=== PATIENT | male | born 1945 | race Caucasian/White ===

== ENCOUNTER → 2021-12-10 10:14 | Outpatient (BNVA) | payer OTHER, MEDICARE, SELFPAY | PROVIDERS: PCP Pediatrics; Visit Provider Anesthesiology | DX: M54.2 Cervicalgia (principal); M48.061 Spinal stenosis, lumbar region without neurogenic claudication | CPT/HCPCS: 99202 ==

== ENCOUNTER 2023-07-01 14:36 | Outpatient (AMB) | payer OTHER, SELFPAY ==
--- NOTE | 2023-07-01 15:33 | HO.SPINEOV ---
Intake Intake Visit Reasons: 2 weeks Intake Note: Ms. Hirsch is here for f/u. Bulk Station Operator Required: No Allergies tizanidine [From Zanaflex] Adverse Reaction (Verified 12/10/21 11:00) Hallucinations Assessment & Plan Assessment & Plan (1) Lumbar stenosis without neurogenic claudication: Comment: Currently lumbar stenosis was not discussed. We have to address her acute pain problem. After that I will see her in this office in 8 weeks. Code(s): M48.061 - Spinal stenosis, lumbar region without neurogenic claudication (2) Cervicalgia: Code(s): M54.2 - Cervicalgia Plan Dear colleague, On 07/01/2023, I saw Mei Hirsch. She status post C6 corpectomy for cervical myelopathy and L4-5 lumbar fusion. She comes in discussing residual symptoms. 1st she developed severe itching in her neck 1 year postoperatively. She visited Dr. Melendez application systems administrator, who in the and prescribed gabapentin. Patient states that the itching has resolved. Other complaints are intermittent neck pain, mild tingling in the bilateral arms, mild balance problems and back pain with standing or walking. Neurological exam is benign and shows no pathological reflexes coffee active sensory deficits or weakness. I reviewed the patient's MRI of the cervical spine in detail and told patient that she had significant spinal cord compression with myelomalacia preoperatively and that in the described residual symptoms seem appropriate. As far as the back concerns, I told her that back pain with standing and walking, which is a form of spinal stenosis, response badly to surgery. I advised her to return to my office if progression of any symptoms occur. In particular, in the cervical symptoms would need further workup if progression occurs. I spent 30 minutes in this consult for preparation, review of imaging and discussing symptomatology. Thank you for letting me take care of this patient. Do not hesitate to call call me with any questions or concerns. Pranav Washington MD, PhD Spine Fellowship Trained Neurosurgeon Director, [facility] Coding Level of Care Code Est Pt Level 4 (05815) Diagnoses Lumbar stenosis without neurogenic claudication M48.061 Cervicalgia M54.2
== END 2023-07-01 15:55 | disposition home or self-care (01) ==
PROVIDERS: PCP Pediatrics; Referring Provider Internal Medicine; Visit Provider Neurological Surgery
DX: M48.061 Spinal stenosis, lumbar region without neurogenic claudication (principal); M54.2 Cervicalgia
CPT/HCPCS: 99214

== ENCOUNTER → 2023-07-01 14:36 | Outpatient (BNVA) | payer OTHER, SELFPAY | PROVIDERS: PCP Pediatrics; Referring Provider Internal Medicine; Visit Provider Neurological Surgery | DX: M48.061 Spinal stenosis, lumbar region without neurogenic claudication (principal); M54.2 Cervicalgia | CPT/HCPCS: 99212 ==

== ENCOUNTER 2024-06-30 14:51 | Outpatient (AMB) | payer OTHER, SELFPAY ==
--- NOTE | 2024-06-30 14:54 | HO.SPINEOV ---
Intake Visit Reasons: lower back pain/difficulty sitting Intake Note: Ms. Hirsch is here today c/o low back pain and having difficult with walking. Recreational Therapist Required: No Allergies tizanidine [From Zanaflex] Adverse Reaction (Verified 12/10/21 11:00) Hallucinations Assessment & Plan Assessment & Plan (1) Lumbar stenosis without neurogenic claudication: Comment: Currently lumbar stenosis was not discussed. We have to address her acute pain problem. After that I will see her in this office in 8 weeks. Code(s): M48.061 - Spinal stenosis, lumbar region without neurogenic claudication Category: Medical Plan Dear colleague, on 06/30/2024 I saw for return visit Mei Hirsch for ongoing back pain. She complains of severe back pain, predominantly with walking and standing. 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 The pain radiates down her posterior thighs but does not go below the knees. Prolonged sitting eventually also gives her the same type of back pain. On exam, there is no pain with hip rotation. Straight leg raise is negative. No motor or sensory deficits. In summary, the patient is suffering from back pain without neurogenic claudication most likely caused by lumbar spinal stenosis. I will order a new MRI of the lumbar spine. I will also obtain a set of x-rays during the next visit. I spent 30 minutes in his consult to discuss the symptomatology and plan. Pranav Washington MD, PhD Spine Fellowship Trained Neurosurgeon Director, [facility] Orders: Orders MR lumbar spine wo con Today M48.061 - Spinal stenosis, lumbar region without neurogenic claudication Coding Level of Care Code Est Pt Level 4 (71355) Diagnoses Lumbar stenosis without neurogenic claudication M48.061
== END 2024-06-30 15:33 | disposition home or self-care (01) ==
PROVIDERS: PCP Internal Medicine; Visit Provider Neurological Surgery
DX: M48.061 Spinal stenosis, lumbar region without neurogenic claudication (principal)
CPT/HCPCS: 99214

== ENCOUNTER → 2024-06-30 14:51 | Outpatient (BNVA) | payer OTHER, SELFPAY | PROVIDERS: PCP Internal Medicine; Visit Provider Neurological Surgery | DX: M48.061 Spinal stenosis, lumbar region without neurogenic claudication (principal) | CPT/HCPCS: 99212 ==

== ENCOUNTER → 2024-08-01 09:38 | Outpatient (BNV) | payer OTHER, SELFPAY | PROVIDERS: PCP Internal Medicine; Visit Provider Radiology Diagnostic Radiology | DX: M54.50 Low back pain, unspecified (principal) | CPT/HCPCS: 72148 ==

== ENCOUNTER 2024-08-01 09:55 | Outpatient (REF) | payer OTHER, SELFPAY ==
--- NOTE | ~2024-08-01 | MR_ITS ---
EXAMINATION: MR LUMBAR SPINE WITHOUT CONTRAST CLINICAL INFORMATION: Low back pain. Status post surgery. Weakness and numbness both lower extremities. COMPARISON: None available. TECHNIQUE: MRI of the lumbar spine was obtained using routine sequences without contrast. FINDINGS: Last rib-bearing vertebra labeled T12. Paramagnetic field distortion secondary to metallic hardware posterior fusion L4-5 and intervertebral disc spacer at L4-5. L2 level marginal osteophyte formation and disc desiccation. No bone marrow STIR signal abnormality. Grade 1 retrolisthesis, L3-4. Grade 1 anterolisthesis L4-5. Conus medullaris ends at intervertebral disc T12-L1 with normal signal. T12-L1: No compression upon neural elements. L1-2: Broad-based disc bulging. Facet joint hypertrophy as well as ligamentum flavum. No compression upon neural elements. L2-3: Broad-based disc bulging. Facet joint and ligamentum flavum hypertrophy resulting in decreased AP diameter of the thecal sac encroaching the neural elements. Bilateral neuroforamina narrowing. L3-4: Grade 1 retrolisthesis. Broad-based disc bulging. Facet joint and ligamentum flavum hypertrophy. CSF effacement of the thecal sac and central spinal canal stenosis. Bilateral neuroforamina stenosis encroaching the exiting nerve root. L4-5: Post surgical changes. L5-S1: Broad-based disc bulging. Facet joint hypertrophy. No central spinal canal stenosis. No neuroforamina stenosis. No prevertebral compartment hematoma, mass or fluid collection. Soft tissue fullness, left adrenal gland. MR/MR lumbar spine wo con IMPRESSION: Multilevel spondylosis resulting in central spinal canal stenosis compressing the neural elements of the thecal sac at L3-4 likely encroaching the exiting nerve roots. Central spinal canal narrowing at L2-3 on a multifactorial basis. Probable left adrenal hyperplasia. Electronically signed by: Axel Landry MD 08/31/2024 01:03 PM EDT
== END 2024-08-01 09:56 | disposition home or self-care (01) ==
LOC: HO.MRI 09:55
PROVIDERS: PCP Internal Medicine; Visit Provider Neurological Surgery
DX: M48.061 Spinal stenosis, lumbar region without neurogenic claudication (principal)
CPT/HCPCS: 72148

== ENCOUNTER 2024-09-08 13:10 | Outpatient (AMB) | payer OTHER, SELFPAY ==
--- NOTE | 2024-09-08 13:16 | HO.SPINEOV ---
Intake Visit Reasons: MRI f/u Intake Note: Ms. Hirsch is here today to F/u on the results to her MRI. Tableau Developer Required: No Allergies tizanidine [From Zanaflex] Adverse Reaction (Verified 09/08/24 13:17) Hallucinations Assessment & Plan Assessment & Plan (1) Lumbar stenosis without neurogenic claudication: Comment: Currently lumbar stenosis was not discussed. We have to address her acute pain problem. After that I will see her in this office in 8 weeks. Code(s): M48.061 - Spinal stenosis, lumbar region without neurogenic claudication Category: Medical Plan Dear colleague, On 09/08/2024, I saw for follow-up Mei Hirsch to discuss the MRI results of her lumbar spine. As you know, she suffering from back pain predominantly with walking and standing and sometimes she has a mild discomfort in her right leg. Standing in the kitchen is a problem and she has to sit down. She uses Tylenol or ibuprofen to control the symptoms. I reviewed the MRI in detail with the patient in his shows adjacent severe central spinal stenosis above the previous L4-5 fusion. The patient states that she currently can manage her symptoms but she will return if the neurogenic symptoms are increasing. At that point, we will have to address the L3-4 level with a fusion. I spent 15 minutes in his consult discussing the MRI results. Pranav Washington MD, PhD Spine Fellowship Trained Neurosurgeon Director, [facility] Coding Level of Care Code Est Pt Level 2 (81728) Diagnoses Lumbar stenosis without neurogenic claudication M48.061
== END 2024-09-08 13:31 | disposition home or self-care (01) ==
LOC: HO.HNS 13:11
PROVIDERS: PCP Internal Medicine; Visit Provider Neurological Surgery
DX: M48.061 Spinal stenosis, lumbar region without neurogenic claudication (principal)
CPT/HCPCS: 99212

== ENCOUNTER → 2024-09-08 13:10 | Outpatient (BNVA) | payer OTHER, SELFPAY | PROVIDERS: PCP Internal Medicine; Visit Provider Neurological Surgery | DX: M48.061 Spinal stenosis, lumbar region without neurogenic claudication (principal) | CPT/HCPCS: 99212 ==

== ENCOUNTER 2025-04-25 10:34 | Outpatient (AMB) | payer OTHER, SELFPAY ==
--- NOTE | 2025-04-25 10:56 | HO.SPINEOV ---
Intake Visit Reasons: LBP Intake Note: Ms. Hirsch is here today c/o low back pain. Veterinary Technician Required: No Allergies tizanidine (From Zanaflex) Adverse Reaction (Verified 09/08/24 13:17) Hallucinations Assessment & Plan Assessment & Plan (1) Spinal stenosis, lumbar: Code(s): M48.061 - Spinal stenosis, lumbar region without neurogenic claudication Category: Medical Plan HPI: Mei comes in today for subsequent follow-up after previously being evaluated in clinic by Dr. Washington. She has a pertinent past medical history of an L4-[address] Washington a few years ago. She called to make an appointment for follow up today because she feels that her neurogenic claudication symptoms are worsening. She has worsening pain with standing for prolonged periods of time, and is only able to mitigate her pain by taking Alleve and using Salonpas patches. She has become much less active and feels her quality of life is declining. I reviewed Dr. Washington previous recommendation of L3-4 lumbar fusion. Specifically we reviewed the OLIF procedure in depth. I answered all questions she had related to the procedure. She wishes to proceed with oblique lumbar interbody fusion L3-4. Medications: The patient reports that her current medications are as follows; amlodipine, metoprolol, Lipitor, unspecified eye drops for macular degeneration, calcium supplements, vitamin-D. Imaging: MRI of the lumbar spine completed here at [facility] shows severe central canal and bilateral foraminal stenosis at L4-5, above her L4-5 fusion segment. Plan: After discussing L3-4 OLIF at great length the patient asked several questions all of which were answered to the best of my ability. She would like to proceed with surgery. I will review her images [address] Washington to ensure that he L3-4 OLIF is the procedure of choice for her fusion. The patient was given risk and benefits of lumbar spine fusion surgery including but not limited to infection, hematoma, nerve injury, durotomy, weakness, bowel/bladder injury, persistent pain, pseudoarthrosis. We also discussed the option to continue with conservative treatment and patient wishes to proceed with surgery. They are aware they should stop NSAIDs 7 days prior to surgery. All questions were answered to the best of our ability. If there is anything about this patients medical history that we have overlooked or concerns you have about us proceeding with surgery we would appreciate any input you can offer Chinedu Washington MD,PhD [facility] Coding Level of Care Code Est Pt Level 3 (56721) Diagnoses Spinal stenosis, lumbar M48.061
--- OUTSIDE RECORDS SUMMARY | 2025-04-25 11:50 | XMS_ITS | Encounter Summary ---
Author Organization [facility] Address [address] [place] [address] Care Team Providers Care Matrix Drier Tender Name Role Phone Mer Chandler MD Primary Care Provider [phone] Reason for Referral * Consultation (Routine) - Pending Review Specialty Diagnoses / Procedures Referred By Patricia jones Referred To Contact Neurosurgery Diagnoses Low back pain, unspecified Mer Chandler MD [address] [place] [address] Phone: tel: fax: Chinedu Oliveira PA [address] [place] [address] Phone: tel: fax: Referral ID Status Reason Start Date Expiration Date Visits Requested Visits Authorized [id number] Pending Review Specialty Services Required 04/20/2025 04/20/2026 1 1 Encounter Details Date Type Department Care Team (Late st Contact Info) Description 04/20/2025 Telephone Adult Medicine [address] [phone] Mer Chandler MD [address] [place] [id number] Social History Tobacco Use Types Packs/Day Years Used Date Smoking Tobacco: Never Smokeless Tobacco: Never Alcohol Use Standard Drinks/Week Comments No 0 (1 standard drink = 0.6 oz pur e alcohol) Housing Instability Answer Date Recorde d Are you worried that in the next 2 months you may not have stable housing? No 12/06/2024 Food Access & Nutrition Answer Date Rec orded Do you have access to a vari ety of food including fruits and vegetables? Yes 12/06/2024 Access to Healthcare Answer Date Record ed Within the last 3 months, ho w many times did you visit the emergency department for your medical care? 0 12/06/2024 Health Literacy Answer Date Recorded How often do you need to hav e someone help you when you read instructions, pamphlets, or other written material from your doctor or pharmacy? Never 12/06/2024 Caregiver: How often do you need to have someone help you when you read instructions, pamphlets, or other written material from your doctor or pharmacy? Not on file 12/06/2024 Financial Risk Answer Date Recorded How hard is it for you to pa y for the very basics like food, housing, medical care, and air conditioning / heating? Not very hard 12/06/2024 Transportation Answer Date Recorded Has the lack of transportati on kept you from meetings, work, or from getting things needed for daily living? No Has the lack of transportati on kept you from medical appointments or from getting medications? No 12/06/2024 Social Isolation Answer Date Recorded How often do you feel lonely or isolated from th ose around you? Never 12/06/2024 Food Risk Answer Date Recorded Within the past 12 months we worried whether our food would run out before we got money to buy more. Never true 12/06/2024 Within the past 12 months th e food we bought just didn't last and we didn't have money to get more. Never true 12/06/2024 Dependent Care Answer Date Recorded Do you need help finding or paying for care for your loved ones. For example, children's ministries director or elderly care for an older adult? Patient declined 12/06/2024 Education Answer Date Recorded Do you think completing more education or training, like finishing a GED, going to college, or learning a trade, would be helpful for you? No 12/06/2024 Employment and Income Answer Date Recor ded During the last four weeks, have you been actively looking for work? Patient declined 12/06/2024 Living Situation Answer Date Recorded What is your living situation? 0 12/06/2024 Comments No Sex and Gender Information Value Date Recorded Sex Assigned at Female 11/02/2024 10:53 AM EST Legal Sex Female 7:31 PM EST Gender Identity Female 11/02/2024 10:53 AM EST Sexual Orientation Not on file documented as of this encounter Progress Notes * Taryn Sr - 04/20/2025 1:55 PM EDT What insurance does the patient have today? [facility]or: [email or web address]/@[email or web address]@ Referrals cannot be processed if the insurance is not accurate. If the insurance listed above is NO BILLING INFORMATION FOUND FOR THIS ENCOUNTER then the patients correct insurance must be obtainedand registered in [facility] or their referral can not be processed. Name of person calling to request this referral? Rep schmitz Referred To Provider (Include first and last name): CHINEDU OLIVEIRA NPI (if known): [id number] Order/Specialty requested neurosurgery Chief Complaint (Note: This is not a body part or a procedure): m54.50 Has the patient seen provider for this problem/Dx before? yes Referred To Provider Address: [address] [place] [address] Referred To Provider Referred To Provider Does patient have an appointment scheduled?: yes If yes, what is the date of the appointment?: 04/25/2025 Is this a retro request? no Number of visits requested: 6 documented in this encounter Plan of Treatment Upcoming Encounters Date Type Department Care Team (Late st Contact Info) Description 05/24/2025 8:30 AM EDT Office Visit Adult Medicine [place] - [address] [phone] Mer Chandler MD [address] [place] [address] 06/27/2025 9:00 AM EDT Office Visit Obstetrics and Gynecology - [place] [address] [place] [phone] Judy Lara CNM [address] [place] [address] Scheduled Referrals Name Type Priority Associated Diagnoses Order Schedule Ambulatory referral to Neurosurgery Outpatient Referral Routine Low back pain, unspecified 1 Occurrences starting 04/20/2025 until 04/20/2026 documented as of this encounter Visit Diagnoses Diagnosis Low back pain, unspecified- Primary documented in this encounter Additional Health Concerns Assessment Noted Time PHQ-9 Depression Total Score: 0 03/22/20 25 9:47 AM EDT documented as of this encounter Care Teams Matrix Drier Tender Relationship Specialty Start Date End Date Mer Chandler MD [address] [place] [phone] PCP - General Internal Medicine 06/10/22 documented as of this encounter
== END 2025-04-25 11:30 | disposition home or self-care (01) ==
LOC: HO.HNS 10:35
PROVIDERS: PCP Internal Medicine; Visit Provider Physician Assistant
DX: M48.061 Spinal stenosis, lumbar region without neurogenic claudication (principal)
CPT/HCPCS: 99213

== ENCOUNTER → 2025-04-25 10:34 | Outpatient (BNVA) | payer OTHER, SELFPAY | PROVIDERS: PCP Internal Medicine; Visit Provider Physician Assistant | DX: M48.061 Spinal stenosis, lumbar region without neurogenic claudication (principal) | CPT/HCPCS: 99212 ==

== ENCOUNTER → 2025-05-16 11:31 | Outpatient (BNV) | payer OTHER, SELFPAY | PROVIDERS: Admitting Provider Neurological Surgery; PCP Internal Medicine; Visit Provider Internal Medicine | DX: R94.31 Abnormal electrocardiogram [ECG] [EKG] (principal); Z01.810 Encounter for preprocedural cardiovascular examination | CPT/HCPCS: 93010 ==

== ENCOUNTER 2025-05-24 09:31 | Inpatient (IN) | payer OTHER, SELFPAY ==
--- NOTE | 2025-05-16 | ECG_ITS ---
Test Reason : PRE OP Blood Pressure : */* mmHG Vent. Rate : 61 BPM Atrial Rate : 61 BPM P-R Int : 206 ms QRS Dur : 96 ms QT Int : 408 ms P-R-T Axes : 28 22 26 degrees QTcB Int : 410 ms Normal sinus rhythm cannot exclude old Anterior infarct , age undetermined ; could be related to body habitus and lead placement Abnormal ECG No previous ECGs available Referred By: Jina Fisher Electronically Signed By: YOUNG REARDON
[2025-05-16 10:23] VITALS: BP 136/62; PULSE 68; RESP 20; O2SAT 98; BMI 24.4
[2025-05-16 11:58] LABS: Hematocrit 38.8 % (42.0-52.0); Hemoglobin 13.1 g/dl (14.0-18.0); Mean Corpuscular HGB Conc 33.8 g/dl (31.0-36.0); Mean Corpuscular Hemoglobin 30.4 pg (27.0-33.0); Mean Corpuscular Volume 90.0 fL (80.0-98.0); NRBC Abs Auto 0.000 X10*3/uL (0.0-0.012); NRBC Pct Auto 0.0 /100WBC (0.0-0.2); Platelet Count 297 X10*3/uL (160-400); Red Blood Count 4.31 X10*6/uL (4.60-5.80); White Blood Count 11.1 X10*3/uL (4.8-10.8)
[2025-05-16 12:33] LABS: Anion Gap 12 (12-20); Blood Urea Nitrogen 19 mg/dL (9-16); Calcium 9.7 mg/dL (8.4-10.2); Carbon Dioxide 28 mmol/L (22-29); Chloride 105 mmol/L (96-108); Creatinine Clr Calc Pharmacy 61.4; Estimated Glomerular Filt Rate > 60; Potassium 4.4 mmol/L (3.3-5.1); Sodium 141 mmol/L (135-145)
[2025-05-24] VITALS (11 sets, daily range): BP systolic 130–172; BP diastolic 49–72; PULSE 68–82; RESP 12–18; TEMP 36.1–36.6; O2SAT 92–100; BMI 24.3
--- NOTE | ~2025-05-24 | FL_ITS ---
EXAMINATION: FL GUIDANCE ONLY HISTORY: L3-4 OLIF COMPARISON: Correlation is made with an MRI of the lumbar spine dated 08/01/2024. TECHNIQUE: Fluoroscopy time: 59.8 seconds. Cumulative Dose: 29.892 mGy. DAP: 12.018 mGym2 Images: 3. FINDINGS: Fluoroscopic spot films of the lumbar spine demonstrate removal of pedicle screws at L4-5 and placement of pedicle screws, spinal stabilization rods, and an intervertebral spacer at L3-4. FL/FL guidance in OR IMPRESSION: Fluoroscopy during procedure. Please see procedure report for additional information. Electronically signed by: Hudson Calzada MD 05/24/2025 02:24 PM EDT
--- NOTE | 2025-05-24 07:00 | MHC.SHP ---
Pre-Procedural Eval Section A - 24 Hr Update-Section A only Date of Service: 05/24/25 Section B - Complete if H&P > 30 days Chief Complaint: Spinal stenosis, lumbar region without neurogenic Allergies: Allergies Allergy/AdvReac Type Severity Reaction Status Date / Time clonidine Allergy Hypotension Verified 05/18/25 09:52 lisinopril Allergy Cough Verified 05/18/25 09:51 losartan Allergy Nausea Verified 05/18/25 09:53 oxycodone Allergy Fainting Verified 05/13/25 07:25 tramadol Allergy Nausea and Verified 05/13/25 07:25 Vomiting tizanidine (From Zanaflex) AdvReac Hallucinati Verified 09/08/24 13:17 ons Review of Systems Sugical H&P ROS: Negative: Constitution, Cardiovascular, Respiratory, Neurological, Psychiatric, Hem-Onc, Allergic/Immunologic, Gastrointestinal, Genitourinary, Musculoskeletal, Integumentary, Endocrine and Eyes/Ears/Nose/Throat Exam Surgical H&P Exam: Not Evaluated: HEENT, Not Evaluated: Heart, Not Evaluated: Lungs, Not Evaluated: Extremities, Not Evaluated: Abdomen, Not Evaluated: Skin and Not Evaluated: Neurological Exam Comment: The patient is awake, alert, in no acute distress. Proposed surgical incision site is clean, dry, no signs of recent trauma. Plan Diagnosis/Plan: Unchanged I have reviewed the history and physical and performed a pertinent physical examination on my patient. No changes have occurred unless specified. Plan remains the same, L3-4 OLIF with possible conversion to TLIF and removal of instrumentation at L4-5 Time Spent With Patient Time: Total time managing care of this patient today __7_ minutes.
--- NOTE | 2025-05-24 09:38 | HO.ANESPROP2 ---
Documented by User: Jina Fisher NP 05/18/25 10:12 HPI - Anesthesia Eval Consult details Narrative: 80 yr old female for Oblique Lumbar Interbody Fusion (possible conversion to TLIF) and Removal of instrumentation @ L4-5. No recent illness. No chest pain or SOB; climbs stairs. Saw PCP 04/14/25 for HTN mgt, started on amlodipine 5 mg, continue metoprolol 75 mg. PMFSH Active Problems Active Problems: All Active Problems Spinal stenosis, lumbar (Acute) Lumbar stenosis without neurogenic claudication (Acute) Cervicalgia (Acute) Past Medical History Medical History (Updated 05/24/25 @ 09:03 by Khadijah Palencia RN) Bilateral cataracts Family hx total abdominal hysterectomy/bilateral salpingo-oophorectomy Hypercholesteremia History of Mohs micrographic surgery for skin cancer History of hormone replacement therapy Lumbar stenosis without neurogenic claudication Cervicalgia History of basal cell cancer DDD (degenerative disc disease), lumbar Vitamin D deficiency Essential hypertension, benign Functional capacity: independent ambulation Family History Family history of problems with anesthesia: No Surgical History Surgical History (Updated 05/16/25 @ 10:11 by Anushka Vargas RN) History of carpal tunnel surgery of right wrist History of Mohs surgery for squamous cell carcinoma in situ of skin H/O colonoscopy Hx of breast reduction, elective History of lumbar fusion Hx of rotator cuff surgery Hx of neck surgery Hx of hand surgery Hx of cholecystectomy History of Problems with Anesthesia: Yes (severe N/V in recovery, 2021 spine procedure.) Social History Social History Are you a primary skin care consultant to a significant other at home: No Do you presently have visiting nurse or other home services: No Patient Tobacco Use Status: Never used Tobacco Use of substances other than those prescribed or required for medical reasons: No Have you been hit, kicked, punched, or otherwise hurt by someone within the past year? If so, by whom?: No Are you DNR?: No Advance Directives: No Advance Directives Information Provided: No Advance Directives on File: No Poor oral hygiene: Yes Meds Allergies Allergy/AdvReac Type Severity Reaction Status Date / Time clonidine Allergy Hypotension Verified 05/18/25 09:52 lisinopril Allergy Cough Verified 05/18/25 09:51 losartan Allergy Nausea Verified 05/18/25 09:53 oxycodone Allergy Fainting Verified 05/13/25 07:25 tramadol Allergy Nausea and Verified 05/13/25 07:25 Vomiting tizanidine (From Zanaflex) AdvReac Hallucinati Verified 09/08/24 13:17 ons Home Medications ?Medication ?Instructions ?Recorded ?Confirmed ?Last Taken ?Type metoprolol succinate 50 mg 75 mg PO DAILY 12/10/21 05/16/25 05/24/25 History tablet,extended release 24 hr atorvastatin 10 mg tablet 10 mg PO BEDTIME 05/13/25 05/24/25 05/23/25 History calcium 500 mg (as 1 tab PO DAILY 05/13/25 05/13/25 05/23/25 History carbonate)-vitamin D3 10 mcg (400 unit) tablet gabapentin 100 mg capsule 200 mg PO BEDTIME 05/13/25 05/16/25 05/23/25 History pantoprazole 40 mg tablet,delayed 40 mg PO DAILY 05/13/25 05/16/25 05/24/25 History release amlodipine 5 mg tablet 5 mg PO DAILY 05/16/25 05/16/25 05/24/25 History cholecalciferol (vitamin D3) 25 25 mcg PO DAILY 05/16/25 05/16/25 05/23/25 History mcg (1,000 unit) capsule (Vitamin D3) ibuprofen 200 mg tablet 400 mg PO Q6H PRN Pain 05/16/25 05/16/25 05/16/25 History naproxen sodium 220 mg capsule 220 mg PO BID PRN Pain 05/16/25 05/16/25 05/16/25 History (Aleve) vit C 250 mg-vit E 90 mg-zinc 40 1 tab PO BID 05/24/25 05/24/25 05/23/25 History mg-copper 1 [id number] capsule (PreserVision AREDS-2) Exam Height,Weight and Vital Signs: Height 5 ft 4 in Weight 64.41 kg Last Vital Signs Pulse 68 05/16/25 10:23 Resp 20 05/16/25 10:23 BP 136/62 05/16/25 10:23 Pulse Ox 98 05/16/25 10:23 O2 Del Method Room Air 05/16/25 10:23 Narrative Narrative: EKG 05/2025 Vent. Rate : 61 BPM Atrial Rate : 61 BPM P-R Int : 206 ms QRS Dur : 96 ms QT Int : 408 ms P-R-T Axes : 28 22 26 degrees QTcB Int : 410 ms Normal sinus rhythm cannot exclude old Anterior infarct, age undetermined; could be related to body habitus and lead placement *EKG from 02/2022 with similar findings, possible anterospetal infarct Airway Mallampati Class: II (small mouth opening) TM Dist: >3cm Neck ROM: Full Loose/Missing/Broken Teeth: No (crowns on 8&9) Heart: RRR Lungs: clear to auscultation b/l Assessment and Plan Final Anesthetic Review Family History of Problems with Anesthesia: No History of Problems with Anesthesia: Yes (severe N/V in recovery, 2021 spine procedure.) Documented by User: Winnie Do NP 05/17/25 14:18 [facility] Past Medical History Medical History (Updated 05/24/25 @ 09:03 by Khadijah Palencia RN) Bilateral cataracts Family hx total abdominal hysterectomy/bilateral salpingo-oophorectomy Hypercholesteremia History of Mohs micrographic surgery for skin cancer History of hormone replacement therapy Lumbar stenosis without neurogenic claudication Cervicalgia History of basal cell cancer DDD (degenerative disc disease), lumbar Vitamin D deficiency Essential hypertension, benign Surgical History Surgical History (Updated 05/16/25 @ 10:11 by Anushka Vargas RN) History of carpal tunnel surgery of right wrist History of Mohs surgery for squamous cell carcinoma in situ of skin H/O colonoscopy Hx of breast reduction, elective History of lumbar fusion Hx of rotator cuff surgery Hx of neck surgery Hx of hand surgery Hx of cholecystectomy Social History Social History Are you a primary skin care consultant to a significant other at home: No Do you presently have visiting nurse or other home services: No Patient Tobacco Use Status: Never used Tobacco Use of substances other than those prescribed or required for medical reasons: No Have you been hit, kicked, punched, or otherwise hurt by someone within the past year? If so, by whom?: No Are you DNR?: No Advance Directives: No Advance Directives Information Provided: No Advance Directives on File: No Poor oral hygiene: Yes Meds Allergies Allergy/AdvReac Type Severity Reaction Status Date / Time clonidine Allergy Hypotension Verified 05/18/25 09:52 lisinopril Allergy Cough Verified 05/18/25 09:51 losartan Allergy Nausea Verified 05/18/25 09:53 oxycodone Allergy Fainting Verified 05/13/25 07:25 tramadol Allergy Nausea and Verified 05/13/25 07:25 Vomiting tizanidine (From Zanaflex) AdvReac Hallucinati Verified 09/08/24 13:17 ons Home Medications ?Medication ?Instructions ?Recorded ?Confirmed ?Last Taken ?Type metoprolol succinate 50 mg 75 mg PO DAILY 12/10/21 05/16/25 05/24/25 History tablet,extended release 24 hr atorvastatin 10 mg tablet 10 mg PO BEDTIME 05/13/25 05/24/25 05/23/25 History calcium 500 mg (as 1 tab PO DAILY 05/13/25 05/13/25 05/23/25 History carbonate)-vitamin D3 10 mcg (400 unit) tablet gabapentin 100 mg capsule 200 mg PO BEDTIME 05/13/25 05/16/25 05/23/25 History pantoprazole 40 mg tablet,delayed 40 mg PO DAILY 05/13/25 05/16/25 05/24/25 History release amlodipine 5 mg tablet 5 mg PO DAILY 05/16/25 05/16/25 05/24/25 History cholecalciferol (vitamin D3) 25 25 mcg PO DAILY 05/16/25 05/16/25 05/23/25 History mcg (1,000 unit) capsule (Vitamin D3) ibuprofen 200 mg tablet 400 mg PO Q6H PRN Pain 05/16/25 05/16/25 05/16/25 History naproxen sodium 220 mg capsule 220 mg PO BID PRN Pain 05/16/25 05/16/25 05/16/25 History (Aleve) vit C 250 mg-vit E 90 mg-zinc 40 1 tab PO BID 05/24/25 05/24/25 05/23/25 History mg-copper 1 [id number] capsule (PreserVision AREDS-2) Exam Pertinent Lab Results Pertinent Lab Results: Lab Results 05/16/25 05/16/25 Range/Units 11:13 11:25 WBC 11.1 H (4.8-10.8) X10*3/uL RBC 4.31 L (4.60-5.80) X10*6/uL Hgb 13.1 L (14.0-18.0) g/dl Hct 38.8 L (42.0-52.0) % MCV 90.0 (80.0-98.0) fL MCH 30.4 (27.0-33.0) pg MCHC 33.8 (31.0-36.0) g/dl RDW 13.9 (11.0-16.0) % Plt Count 297 (160-400) X10*3/uL MPV 9.8 (9.4-12.4) fL Absolute Nucleated RBC 0.000 (0.0-0.012) X10*3/uL Nucleated RBC % (auto) 0.0 (0.0-0.2) /100WBC Sodium 141 (135-145) mmol/L Potassium 4.4 (3.3-5.1) mmol/L Chloride 105 (96-108) mmol/L Carbon Dioxide 28 (22-29) mmol/L Anion Gap 12 (12-20) BUN 19 H (9-16) mg/dL Creatinine 0.83 (0.5-1.4) mg/dL Estim Creat Clear Calc 61.4 Estimated GFR > 60 Random Glucose 85 (60-115) mg/dL Calcium 9.7 (8.4-10.2) mg/dL Blood Type O Positive Antibody Screen NEGATIVE Narrative Narrative: EKG 05/2025 Vent. Rate : 61 BPM Atrial Rate : 61 BPM P-R Int : 206 ms QRS Dur : 96 ms QT Int : 408 ms P-R-T Axes : 28 22 26 degrees QTcB Int : 410 ms Normal sinus rhythm cannot exclude old Anterior infarct , age undetermined ; could be related to body habitus and lead placement Abnormal ECG No previous ECGs available Documented by User: Anna Mendes, DO 05/24/25 09:42 [facility] Past Medical History Medical History (Updated 05/24/25 @ 09:03 by Khadijah Palencia RN) Bilateral cataracts Family hx total abdominal hysterectomy/bilateral salpingo-oophorectomy Hypercholesteremia History of Mohs micrographic surgery for skin cancer History of hormone replacement therapy Lumbar stenosis without neurogenic claudication Cervicalgia History of basal cell cancer DDD (degenerative disc disease), lumbar Vitamin D deficiency Essential hypertension, benign Family History Family history of problems with anesthesia: No Surgical History Surgical History (Updated 05/16/25 @ 10:11 by Anushka Vargas RN) History of carpal tunnel surgery of right wrist History of Mohs surgery for squamous cell carcinoma in situ of skin H/O colonoscopy Hx of breast reduction, elective History of lumbar fusion Hx of rotator cuff surgery Hx of neck surgery Hx of hand surgery Hx of cholecystectomy History of Problems with Anesthesia: Yes (PONV) Social History Social History Are you a primary skin care consultant to a significant other at home: No Do you presently have visiting nurse or other home services: No Patient Tobacco Use Status: Never used Tobacco Use of substances other than those prescribed or required for medical reasons: No Have you been hit, kicked, punched, or otherwise hurt by someone within the past year? If so, by whom?: No Are you DNR?: No Advance Directives: No Advance Directives Information Provided: No Advance Directives on File: No Poor oral hygiene: Yes Meds Allergies Allergy/AdvReac Type Severity Reaction Status Date / Time clonidine Allergy Hypotension Verified 05/18/25 09:52 lisinopril Allergy Cough Verified 05/18/25 09:51 losartan Allergy Nausea Verified 05/18/25 09:53 oxycodone Allergy Fainting Verified 05/13/25 07:25 tramadol Allergy Nausea and Verified 05/13/25 07:25 Vomiting tizanidine (From Zanaflex) AdvReac Hallucinati Verified 09/08/24 13:17 ons Home Medications ?Medication ?Instructions ?Recorded ?Confirmed ?Last Taken ?Type metoprolol succinate 50 mg 75 mg PO DAILY 12/10/21 05/16/25 05/24/25 History tablet,extended release 24 hr atorvastatin 10 mg tablet 10 mg PO BEDTIME 05/13/25 05/24/25 05/23/25 History calcium 500 mg (as 1 tab PO DAILY 05/13/25 05/13/25 05/23/25 History carbonate)-vitamin D3 10 mcg (400 unit) tablet gabapentin 100 mg capsule 200 mg PO BEDTIME 05/13/25 05/16/25 05/23/25 History pantoprazole 40 mg tablet,delayed 40 mg PO DAILY 05/13/25 05/16/25 05/24/25 History release amlodipine 5 mg tablet 5 mg PO DAILY 05/16/25 05/16/25 05/24/25 History cholecalciferol (vitamin D3) 25 25 mcg PO DAILY 05/16/25 05/16/25 05/23/25 History mcg (1,000 unit) capsule (Vitamin D3) ibuprofen 200 mg tablet 400 mg PO Q6H PRN Pain 05/16/25 05/16/25 05/16/25 History naproxen sodium 220 mg capsule 220 mg PO BID PRN Pain 05/16/25 05/16/25 05/16/25 History (Aleve) vit C 250 mg-vit E 90 mg-zinc 40 1 tab PO BID 05/24/25 05/24/25 05/23/25 History mg-copper 1 [id number] capsule (PreserVision AREDS-2) Exam Exam Date and Time: 05/24/25 0940 Airway Mallampati Class: II (small mouth opening) TM Dist: >3cm Neck ROM: Full (hx of cervical fusion) Loose/Missing/Broken Teeth: No (patient denies any loose or broken teeth) Heart: S1S2 Lungs: CTAB Assessment and Plan Assessment Anesthesia Assessment: Anesthesia Plan Discussed and Chart Reviewed Final Anesthetic Review Family History of Problems with Anesthesia: No History of Problems with Anesthesia: Yes (PONV) NPO: Yes ASA Class: II Final Preanesthetic Review: No Changes in Pt Med Stat, Meds/Allgs Chart Reviewed, Consent Obtained/Reviewed and Anes Risks/Benef Reviewed Patient Risk: Low Procedure Risk: Intermediate Anesthetic Plan Anesthetic Plan: GA and Agree w/ Assess. and Plan Disposition: Standard PACU
[2025-05-24] MEDS: Lactated Ringers 1,000 ML 100 ML IVCONT (09:42)
--- OUTSIDE RECORDS SUMMARY | 2025-05-24 10:12 | XMS_ITS | Clinical Summary ---
Author Organization [facility] [address] [place] [address] Address [address] [place] [address] Phone Care Team Providers Care Firmware Test Engineer Name Role Phone Mer Chandler MD Primary Care Provider [phone] Allergies Active Allergy Reactions Criticality Noted Date Comments Clonidine 04/14/2025 Bp dropped very low Lisinopril Cough 03/08/2025 Losartan Nausea Only 04/14/2025 Feeling unwell Oxycodone Other 03/29/2022 syncope Tizanidine Other 09/19/2020 hallucinations Tramadol Nausea And Vomiting 04/30/2023 Medications calcium carbonate/vitam in D3 (CALCIUM 500 + D ORAL) Take 1 capsule by mouth 1 (one) time each day. Active gabapentin (NEURONTIN) 100 mg capsule Take 1 capsule (100 mg total) by mouth 1 (one) time each day in the morning. and 2 tablets PM Active vit A/vit C/vit E/zinc/copper (PRESERVISION AREDS ORAL) Take by mouth. Active pantoprazole (PROTONIX) 40 mg EC tablet TAKE 1 TABLET BY MOUTH DAILY 90 tablet 1 5 Active metoprolol succinate (TOPROL-XL) 50 mg 24 hr tablet Take 1.5 tablets (75 mg total) by mouth 1 (one) time each day. 135 tablet 1 5 Active cloNIDine (CATAPRES) 0.2 mg tablet Take 1 tablet (0.2 mg total) by mouth 2 (two) times a day. 60 each 1 5 02/29/20 26 Active fezolinetant 45 mg tabletIndicatio ns:Vasomotor symptoms due to menopause Take 1 tablet by mouth 1 (one) time each day. 90 tablet 1 5 Active amLODIPine (NORVASC) 5 mg tablet Take 1 tablet (5 mg total) by mouth 1 (one) time each day. 90 each 1 5 Active atorvastatin (LIPITOR) 10 mg tablet Take 1 tablet (10 mg total) by mouth 1 (one) time each day. 90 tablet 1 5 Active atorvastatin (LIPITOR) 10 mg tablet Take 1 tablet (10 mg total) by mouth 1 (one) time each day. 90 tablet 1 4 04/30/20 25 Discontinu ed(Reorder ) amLODIPine (NORVASC) 5 mg tablet Take 1 tablet (5 mg total) by mouth 1 (one) time each day. 30 each 5 04/25/20 25 Discontinu ed(Reorder ) Active Problems Problem Noted Date Diagnosed Date Carpal tunnel syndrome on left 02/01/2025 Other fatigue 11/30/2024 Assessment & Plan (11/30/2024 9:17 AM EST): Explained the lack of hormones may be the cause, but we should also check her thyroid. I encouraged her to increase her Vit D to 2K units daily. I recommended regular exercise to help with energy levels. She agreed. Vasomotor symptoms due to menopause 11/30/2024 Assessment & Plan (03/29/2025 9:38 AM EDT): Counseled re: recommendation to avoid hormones due to her age and CV risk. We discussed a newer non-hormonal option is Veozah. I explained it is a relatively new medication and thus does not have long term care pharmacist safety data. However, the literature I have read, suggests it is overall safe. Most common SE is abdominal pain, diarrhea, insomnia, but uncommon overall. Can cause elevated transaminases and thus it is recommended that these be tested to ensure normal before starting and monitored at 3, 6, 9 months after starting. I also discussed that the cost may be prohibitive due to newness. May require a PA and take time to be approved. She voiced understanding of my counseling and desired to try Veozah. We reviewed her healthy history and she seems to be a reasonable risk. She will have labs today and in 3 months. She will follow up in the office in 3 months. Assessment & Plan (02/28/2025 5:12 PM EDT): Failed SSRI. Counseled the patient re: other non-hormonal options for treatment of vasomotor sx. Given her history of HTN, Clonidine may be a good option. She was counseled that I will ask Dr. Chandler her opinion and get back to her. Rx sent for now. Starting with dose of 0.2 mg PO BID. Assessment & Plan (11/30/2024 9:20 AM EST): I explained that it is not safe to restart Premarin at her age given increased risk of CV disease and stroke. She was counseled that there are other non-hormonal options that can help. I recommended she consider low dose Paxil given low risk of SE and usual favorable results. She was open to this. Degenerative retinal drusen of both eyes 024 Vaginal prolapse 11/15/2022 Overview (10/04/2024): Last Assessment & Plan: Reviewed options for pelvic organ prolapse including observation, as long as not having difficulty emptying or significant discomfort, pessary fitting, vs surgical intervention. Given that her symptoms are not very bothersome and she has no difficulty emptying her bladder, she desires to observe for now, but will call if she desires pessary fitting in the future. DDD (degenerative disc disease), lumbar 11/18/19 19 Overview (10/04/2024): Last Assessment & Plan: Patient is 3 weeks s/p L4-5 OLIF, notes her right leg pain is much improved compared to preop, occasionally get some faint symptoms for example if turning in bed. She states the first day she went home she had no pain was doing well, then had right groin and anterior thigh symptoms, that has improved. She is using ibuprofen and heating pad for low back discomfort. She has been walking around her house, has not yet left for errands or doing any significant walking. She states preop her right leg pain flared up with walking. She denies any fevers, sweats chills, wound drainage. She is not using narcotics or muscle relaxers at this time. Ms. Hirsch seems to be doing well postop, she notes things continue to improve each week. I encouraged her to try increasing her walking as tolerated, avoid activities that flare up pain. She has a follow-up appointment in 6 weeks with lumbar spine x-rays with Dr. Washington. All postop questions answered. She will call with any concerns or questions. Hypercholesteremia 10/21/2017 Essential hypertension, benign 10/12/2010 Assessment & Plan (11/30/2024 9:16 AM EST): She admits she did not yet take her medication this AM. She will take it when she gets home and recheck thereafter. Vitamin D deficiency 10/12/2010 Assessment & Plan (11/30/2024 9:16 AM EST): I encouraged her to increase her Vit D dose to 2K units daily. Resolved Problems Problem Noted Date Diagnosed Date Resolved Date Postmenopausal HRT (hormone replacement therapy) 10/19/2024 11/30/2024 Assessment & Plan (10/19/2024 11:28 AM EST): I agreed with Mei's decision. If she has any issues with vaginal dryness in the future can consider vaginal E2. If VMS return to an unsatisfactory level, can discuss non-hormonal options. She agrees. Encounters Date Type Department Care Team Description 04/20/2025 Telephone Adult Medicine [address] [phone] Mer Chandler MD 04/14/2025 1:00 PM EDT Office Visit Adult Medicine [address] [phone] Dinesh Snyder PA Uncontrolled hypertension (Primary Dx) 04/07/2025 Telephone Obstetrics and Gynecology - [address] [phone] Vanna Matos MD PRIOR AUTHORIZATION 03/29/2025 9:50 AM EDT Lab Draw Station [address] Vasomotor symptoms due to menopause 03/29/2025 9:15 AM EDT Office Visit Obstetrics and Gynecology [address] [phone] Vanna Matos MD Vasomotor symptoms due to menopause (Primary Dx) 03/08/2025 Telephone Adult Medicine [address] [phone] Mer Chandler MD returning call 03/07/2025 Nurse Triage Adult [address] [phone] Mer Chandler MD 03/03/2025 Telephone Obstetrics and [address] [phone] Vanna Matos MD 02/28/2025 8:45 AM EDT Office Visit Obstetrics and Gynecology [address] [phone] Vanna Matos MD Vasomotor symptoms due to menopause (Primary Dx) from Last 3 Months Immunizations Name Administration Dates Next Due Influenza Quadravalent, MDCK , 0.5ml, with preservative (Flucelvax) 6mo and older 10/17/2017 Influenza trivalent, 0.5mL ( Fluad) 65yo and older 07/21/2024,09/10/2023,07/23/2022,08/27,07/10/2018,07/29/2016 Influenza trivalent, 0.5mL, preservative free (Fluarix; FluLaval; Fluzone) ages 6mo and older (Afluria) 3 years and older 07/17/2015,08/31/2013,08/19/2011 Influenza, Unspecified 09/05/2020,07/04/2020 [facility] SARS-CoV-2 COVID-19, mRNA, LNP-S, preservative free 10/15/2021,02/03/2021,01/12/2021 Pneumococcal conjugate 13 va lent (Prevnar 13, PCV13) 2mo and older 03/06/2016 Pneumococcal polysaccharide 23 valent (Pneumovax 23) 2yo and older 05/08/2012 Td Tetanus diptheria (Tdvax) 7yo and older 05/08/2012 Tdap Tetanus diptheria acell ular pertussis (Boostrix; Adacel) 7yo and older 01/19/2024 Zoster Live 06/04/2012 Zoster recombinant (Shingrix ) 19yo and older 09/05/2020,06/23/2020 Surgical History Surgery Date Site/Laterality Comments HYSTERECTOMY age 44 PROCEDURE: HISTORICAL HYSTERECTOMY; COMMENT: +BSO CHOLECYSTECTOMY age 55 PROCEDURE: HISTORICAL CHOLECYSTECTOMY BREAST REDUCTION age 47 PROCEDURE: MN BREAST REDUCTION ROTATOR CUFF REPAIR 2006 PROCEDURE: HISTORICAL ROTATOR CUFF REPAIR; COMMENT: R COLONOSCOPY 2002 PROCEDURE: MN COLONOSCOPY STOMA DX INCLUDING COLLJ SPEC SPX; COMMENT: due 2012 OTHER SURGICAL HISTORY PROCEDURE: HISTORICAL SUPRACERVICAL HYSTERECTOMY WITH BSO OTHER SURGICAL HISTORY 04/2003 PROCEDURE: OUTSIDE BONE DENSITY HAND SURGERY PROCEDURE: HISTORICAL HAND SURGERY; COMMENT: tendon release trigger fingers (4th on R and L) CHOLECYSTECTOMY PROCEDURE: MN CHOLECYSTECTOMY NECK SURGERY 02/21/2022 N/A PROCEDURE: HISTORICAL NECK SURGERY; COMMENT: C6 corpectomy, C5-7 anterior fusion; Dr. Washington OTHER SURGICAL HISTORY 08/28/2022 PROCEDURE: MN ARTHRODESIS POSTERIOR INTERBODY 1 NTRSPC LUMBAR; COMMENT: L4-5 OLIF fusion, Dr. Washington CARPAL TUNNEL RELEASE Right Medical History Medical History Date Comments Essential hypertension, benign D X:Essential hypertension, benign Vitamin D deficiency 04/10 DX:Vitamin D deficiency Historical Medical DX DX:Basal c ell cancer; COMMENT: hx of Endometriosis 1989 DX:Endometriosis Internal hemorrhoids 06/15 DX:Internal hemorrhoids; COMMENT: on CN Postmenopausal HRT (hormone replacement therapy) 10/19/2024 Family History Relation Name Status Comments Brother (Age 61) HTN; suici de Father (Age 63) lung cance r, htn Maternal Grandfather Maternal Grandmother Mother (Age 92) htn; ?david brando cancer Paternal Grandfather Paternal Grandmother Son 1 Scott Alive healthy Son 2 Greyson Alive healthy; depres lavelle Social History Tobacco Use Types Packs/Day Years Used Date Smoking Tobacco: Never Smokeless Tobacco: Never Tobacco Cessation:Counseling Given: Not Answered Alcohol Use Standard Drinks/Week Comments No 0 [...] care for your loved ones. For example, residential child care counselor or elderly care for an older adult? [...] AM EST Sexual Orientation Not on file Obstetrics History Para Term AB IAB SAB Ectopic Multiple Livin g Live Births 2 2 2 0 0 0 0 0 0 2 2 Date Outcome GA Total Labor Labor/2nd/3rd Weight Sex Type Anes PTL Luiza A1 A5 Name Clin Term Vag-S pont Living Term Vag-S pont Living Last Filed Vital Signs Vital Sign Reading Time Taken Comments Blood Pressure 170/84 04/14/2025 12:57 PM EDT Pulse 78 04/14/2025 12:57 PM EDT Temperature 36.6 C (97.9 F) 04/14/2025 12:57 PM EDT Respiratory Rate 12 04/14/2025 12:57 PM EDT Oxygen Saturation - - Inhaled Oxygen Concentration - - Weight 64.2 kg (141 lb 9.6 oz) 04/14/2025 12:57 PM EDT Height 162.6 cm (5' 4 ) 04/14/2025 12:57 PM EDT Body Mass Index 24.31 04/14/2025 12:57 PM EDT Plan of Treatment Upcoming Encounters Date Type Department Care Team (Late st Contact Info) Description 06/27/2025 9:00 AM EDT Office Visit Obstetrics and Gynecology [address] [phone] Judy Lara CNM [address] [place] [address] 07/01/2025 11:30 AM EDT Office Visit Adult Medicine [address] [phone] Mer Chandler MD [address] [place] [address] 09/12/2025 8:30 AM EST Office Visit Adult Medicine [facility] [address] [place] [phone] Dinesh Snyder PA [address] [place] [address] Health Maintenance Due Date Last Done Comments RSV Immunization Adult Patients (1 - 1-dose 75+ series) 2022 COVID-19 Vaccine ( season) 2024 10/15/2021, 02/03/2021, 01/12/2021 Influenza Vaccine (#1) 2025 , 09/10/2023, 07/23/2022, Additional history exists Social Influencers of Health Screening 12/06/2025 12/06/2024 Hypertension/CHF/CAD Annual BMP Blood Test 12/07/2025 12/07/2024, 07/21/2024, 07/21/2024 Falls Risk Assessment 04/14/2026 04/14/2025, 024 Osteoporosis Screening (Bone Density Screening) 04/06/2029 04/06/2024 Cholesterol Screening (Lipid Panel) 12/07/2029 12/07/2024, 07/21/2024, 07/21/2024 DTaP,Tdap,and Td Vaccines (3 - Td or Tdap) 01/18/2034 01/19/2024, 05/08/2012 Hepatitis C Screening Completed 03/15/2013 Pneumococcal Vaccine: 50+ Years Completed 03/06/2016, 05/08/2012 Zoster Vaccines Completed 09/05/2020, 06/04, 06/04/2012 Depression Screening Completed 05/10/2025, 01/19/20 24 HIB Vaccines Aged Out No longer eligi ble based on patient's age to complete this topic HPV Vaccines Aged Out No longer eligi ble based on patient's age to complete this topic Hepatitis A Vaccines Aged Out No long er eligible based on patient's age to complete this topic Hepatitis B Vaccines Aged Out No long er eligible based on patient's age to complete this topic IPV Vaccines Aged Out No longer eligi ble based on patient's age to complete this topic MMR Vaccines Aged Out No longer eligi ble based on patient's age to complete this topic Meningococcal ACWY Vaccine Aged Out N o longer eligible based on patient's age to complete this topic Meningococcal B Vaccine Aged Out No l onger eligible based on patient's age to complete this topic RSV Immunization Patients Under 20 months Aged Out No longer eligible based on patient's age to complete this topic Varicella Vaccines Aged Out No longer eligible based on patient's age to complete this topic Procedures Procedure Name Priority Date/Time Associated Diagnosis Comments ASPARTATE AMINOTRANSFERASE Routine 03/29/2025 9:55 AM EDT Vasomotor symptoms due to menopause ALANINE AMINOTRANSFERASE Routine 025 9:55 AM EDT Vasomotor symptoms due to menopause COMPREHENSIVE METABOLIC PANEL Routine 12/07/2024 9:51 AM EST Essential hypertension, benign LIPID PANEL WITH REFLEX TO DIRECT LDL Routine 12/07/2024 9:51 AM EST Hypercholesteremia DEPRESSION SCREENING Routine 01/19/2024 FALLS RISK ASSESSMENT Routine 01/19/2024 HEPATITIS C SCREENING Routine 03/15/2013 from Last 3 Months or Most Recently Relevant to Health Maintenance Results * Alanine aminotransferase (03/29/2025 9:55 AM EDT) ALT (SGPT) 29 10 - 60 unit/L LAB CHEMISTRY METHOD 03/29/2025 2:39 PM EDT [facility] Blood Venous blood specimen / Unknown Venipuncture / Unknown 03/29/2025 9:55 AM EDT 03/29/2025 9:55 AM EDT us Vanna Matos MD LAB BLOOD ORDERABLES Final Result [facility] [address] [place] [address], [place] [phone] * Aspartate aminotransferase (03/29/2025 9:55 AM EDT) [facility] AST (SGOT) 25 10 - 42 unit/L LAB CHEMISTRY METHOD 03/29/2025 2:45 PM EDT [facility] Blood Venous blood specimen / Unknown Venipuncture / Unknown 03/29/2025 9:55 AM EDT 03/29/2025 9:55 AM EDT Vanna Matos MD LAB BLOOD ORDERABLES Final Result [facility] [address] [place] [address], [place] [phone] * (ABNORMAL) Lipid panel with reflex to direct LDL (12/07/2024 9:51 AM EST) [facility] Cholesterol 156 0 - 200 mg/dL LAB CHEMISTRY METHOD 12/07/2024 12:07 PM [facility] Triglycerides 154(H) 0 - 150 mg/dL LAB CHEMISTRY METHOD 12/07/2024 12:07 PM [facility] HDL 52 >=40 mg/dL LAB CHEMISTRY METHOD 12/07/2024 12:07 PM [facility] LDL Calculated 73 0 - 100 mg/dL LAB CHEMISTRY METHOD 12/07/2024 12:07 PM [facility] VLDL Cholesterol Barrera 30.8 mg/dL LAB CHEMISTRY METHOD 12/07/2024 12:07 PM [facility] Non HDL Chol. (LDL+VLDL) 104 <145 mg/dL LAB CHEMISTRY METHOD 12/07/2024 12:07 PM [facility] Chol/HDL Ratio 3.0 0.0 - 4.4 LAB CHEMISTRY METHOD 12/07/2024 12:07 PM [facility] Blood Venous blood specimen / Unknown Venipuncture / Unknown 12/07/2024 9:51 AM EST 12/07/2024 9:51 AM EST us Mer Chandler MD LAB BLOOD ORDERABLES Final Resul t [facility] [address] [place] [address], [place] [phone] * Comprehensive metabolic panel (12/07/2024 9:51 AM EST) Sodium 135 133 - 145 mmol/L LAB CHEMISTRY METHOD 12/07/2024 12:07 PM [facility] Potassium 4.6 3.5 - 5.5 mmol/L LAB CHEMISTRY METHOD 12/07/2024 12:07 PM [facility] Chloride 100 96 - 110 mmol/L LAB CHEMISTRY METHOD 12/07/2024 12:07 PM [facility] CO2 29 21 - 32 mmol/L LAB CHEMISTRY METHOD 12/07/2024 12:07 PM [facility] Anion Gap 6 3 - 11 LAB CHEMISTRY METHOD 12/07/2024 12:07 PM [facility] Glucose 88 70 - 100 mg/dL LAB CHEMISTRY METHOD 12/07/2024 12:07 PM [facility] BUN 18 5 - 25 mg/dL LAB CHEMISTRY METHOD 12/07/2024 12:07 PM [facility] Creatinine 0.85 0.50 - 1.10 mg/dL LAB CHEMISTRY METHOD 12/07/2024 12:07 PM [facility] eGFR 71 >=60 mL/min/1. 73m2 LAB CHEMISTRY METHOD 12/07/2024 12:07 PM [facility] Comment:Calculation based on the Chronic Kidney Disease Epidemiology Collaboration (CKD-EPI) equation refit without adjustment for race. BUN/Creatinine Ratio 21.2 LAB CHEMISTRY METHOD 12/07/2024 12:07 PM [facility] Calcium 10.0 8.5 - 10.5 mg/dL LAB CHEMISTRY METHOD 12/07/2024 12:07 PM [facility] AST (SGOT) 17 10 - 42 unit/L LAB CHEMISTRY METHOD 12/07/2024 12:07 PM [facility] ALT (SGPT) 19 10 - 60 unit/L LAB CHEMISTRY METHOD 12/07/2024 12:07 PM [facility] Alkaline Phosphatase 52 42 - 121 unit/L LAB CHEMISTRY METHOD 12/07/2024 12:07 PM [facility] Total Protein 7.1 6.0 - 8.0 g/dL LAB CHEMISTRY METHOD 12/07/2024 12:07 PM [facility] Albumin 4.2 3.2 - 5.0 g/dL LAB CHEMISTRY METHOD 12/07/2024 12:07 PM [facility] Total Bilirubin 0.6 0.0 - 1.4 mg/dL LAB CHEMISTRY METHOD 12/07/2024 12:07 PM [facility] Blood Venous blood specimen / Unknown Venipuncture / Unknown 12/07/2024 9:51 AM EST 12/07/2024 9:51 AM EST Mer Chandler MD LAB BLOOD ORDERABLES Final Resul t [facility] [address] [place] [address], * Falls Risk Assessment (01/19/2024) Falls Risk Assessment abstracted Historical Provider HEALTH MAINTENANCE Final Result * Depression Screening (01/19/2024) Depression Screening abstracted Historical Provider HEALTH MAINTENANCE Final Result * Hepatitis C Screening (03/15/2013) Hepatitis C Screening abstracted Historical Provider HEALTH MAINTENANCE Final Result from Last 3 Months or Most Recently Relevant to Health Maintenance Insurance [employer] Care Teams Firmware Test Engineer Relationship Specialty Start Date End Date Mer Chandler MD [address] [place] [id number] PCP - General Internal Medicine 06/10/22
--- OUTSIDE RECORDS SUMMARY | 2025-05-24 10:12 | XMS_ITS | Data Portability ---
Author Organization [facility], DARIELA Bonilla Address [address] [place] [address] Care Team Providers Care Offset Proof Press Operator Name Role Phone CIARAN SOSA Primary Care Provider Assessment No assessment recorded. Plan of Treatment Reminders Order Date Submit Date Provider Last Modified By Organization Details Last Modified Time Details Appointments None record ed. Lab None record ed. Referral None record ed. Procedures None record ed. Surgeries None record ed. Imaging None record ed. Medication Orders None record ed. Patient TargetsNo targets recorded. Patient InstructionsNo instructions recorded. Reason for Referral None Reported. Medical Equipment None Reported. Medications Name Sig Start Date Stop Date Status Note LastModified by Organization Details LastModified Time paroxetine 10 mg tablet TAKE 1 TABLET BY MOUTH 1 TIME EACH DAY IN THE MORNING. active Not Available Not Available No t Available gabapentin 100 mg capsule TAKE 1-3 CAPSULES AT BEDTIME NEEDED FOR ITCH active Not Available Not Available No t Available Vitals None Recorded Social History None recorded. Functional Status None recorded. Mental Status None recorded. Family History Nothing Reported. Medical History No medical history recorded. Gynecological HistoryNo gynecological history recorded. Obstetrics History GPAL:G 0 P 0 0 0 0 Past Encounters Encounter ID Performer Location Encounter Start Date Encounter Closed Date Diagnosis/Indication Diagnosis SNOMED-CT Code Diagnosis ICD10 Code Diagnosis Note [id number] MD DARIELA Hansen [address] [place] [address] 04/04/2025 10:28:48 04/18/2025 15:29:00 Carpal tunnel syndrome of left wrist [id number] G56.02 Health Concerns Section Related Observation LastModified by Organization Detai ls LastModified Time None Recorded Concern Status LastModified by Organization Details LastModified Time None Recorded Advance Directives Directive None Recorded Payers Insurance Date Sequence Insurance Name Policy Number Policy Santos Covered Member ID Santos Member ID Guarantor Name 04/18/2025 1 [facility] (POS) [id number] Mei Hirsch [id number] Mei Cissekarenagnes Notes Date Note Type Note Provider Name and Address Organization Details Recorded Time 04/04/2025 text/html Diagnosis: Left carpal tunnel syndrome 80-year-old female who presents with numbness and tingling in her left hand. All digits are involved. This particularly bothersome at night awaken her from sleep. Past family, medical, social history and review of systems has been reviewed, updated and is located in the patient s chart. Examination: Healthy appearing patient in no apparent distress. Alert and oriented. HEENT: Normocephalic and atraumatic. Heart: Regular rate and rhythm. Lungs: Clear to auscultation bilaterally. Abdomen: Soft and nontender. Neurovascular exam: Phalen's maneuver is markedly positive on the left. She has some mild thenar atrophy on the left. Brisk cap refill all digits. Extremities: She has symmetric range of motion of her bilateral wrist and digits. Provocative testing of wrist and digits reveal no instability. 1. Numbness in median distribution 3.5 2.Nocturnal numbness yes 4 3.Thenar atrophy/weakness yes 5 4.Positive Phalne's yes 5 5. Loss of 5mm 2PD 4.5 6. Positive Tinel sign 4 12 or greater diagnostic of CTS Plan: The patient and I discussed the situation at length. The patient's history and physical findings are consistent with left carpal tunnel syndrome. I described the nature of carpal tunnel syndrome and treatment options. The patient would like to proceed with a left carpal tunnel release. We discussed the nature of the surgery and potential risks including infection, injury to blood vessels, tendons, nerves, incomplete relief of numbness and palmar tenderness. All of the patient's questions were answered. We will perform the procedure at the patient's earliest possible convenience. Porfirio Pearson MD [address] [facility] [address], [place], [address], [facility] 04/04/2025 13:02:38 OBGyn Episode No OBEpisode recorded.
--- NOTE | 2025-05-24 12:21 | P.OP_ITS ---
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 I have explained the nature, purpose and benefits of the operation. I have discussed the risks and benefit of the operation including possible complications or adverse events with patient/family. Alternative(s) were discussed with the patient with their relative benefits and risks as well as the consequences of not accepting the operation were included in obtaining consent. Surgeon: GREG HERNANDEZ MD, PHD Procedure Assisted By: ALONZO Leach Description of Procedure This 80-year-old female previously underwent an L4-5 oblique lumbar interbody fusion. She presented with back pain and neurogenic claudication symptoms due to adjacent degenerative disc disease L3-4 The patient was offered an oblique lumbar interbody fusion L3-4 and revision of the posterior instrumentation with removal of the bilateral L5 screws, insertion of new L3 screws and performing a posterior lateral instrumented fusion L3-4. The procedure and complications were explained. The patient was consented. The patient was brought to the operating room and endotracheally intubated. The patient was turned in a lateral position with the left side up. Prep and drape was done followed by timeout. A small incision was made in the left lower abdominal quadrant. The muscle fascia was opened after which the 3 muscle layer was split to enter the retroperitoneal space. Dilators were docked in the anterior one third of the L3-4 disc space followed by a retractor. The retractor was opened. The L3-4 disc space was exposed. An annulotomy was done after which an elevator Lepe was used to release the disc material from its endplates and to perforate the contralateral side. A partial discectomy was done. An 8 mm height trial implant was inserted. The discectomy was completed. The endplates were prepared. An 10 x 45 mm with 6 deg ree lordosis 4 web cage filled with allograft was inserted into the disc space under fluoroscopic guidance. This resulted in religion of the anatomical alignment and disc height religion. The retractor was removed. Hemostasis was done. The incision was closed in 2 layers. Steri-Strips used to approximate incision. An OpSite with Tegaderm was used to cover the incision. This marked first part of the procedure. The patient was turned prone on the Devon spine table. 2C arms were installed for fluoroscopy. Prep and drape was done followed by a second timeout. The previous paramedian incisions were opened and the L4-5 instrumentation was exposed. The locking caps were removed as well as the rods. Then the bilateral L5 screws were removed. The following steps were accordingly taken. A pediguard tap was used to create a transpedicular trajectory into the vertebral body. A K wire was placed. A specially designed instrument was advanced over the K wire to decorticate the posterolateral gutter in preparation for the posterolateral fusion. A pedicle screw was advanced over the K wire and the K wire was removed. The steps were done for the bilateral L3 pedicles. A total of 2 screws were placed with a diameter of 6.5 x 45 mm. Pedicle screws were connected with 45 mm yoandy bilaterally and locked down with locking caps. The extension towers were removed. The posterolateral gutter was filled with allograft to complete the posterolateral L3-4 fusion Hemostasis was done and the incision was closed in 2 layers. Steri-Strips were used to approximate the incision. An OpSite with teg aderm was used to cover the incision. All sponge and needle counts were correct. Patient was extubated and transferred in stable is to recovery room. Anesthesia: General Estimated Blood Loss (ml): 30 Duration of Surgery: 90 minutes Complications: None Postoperative Plan: Admit to inpatient for clinical observation
--- NOTE | 2025-05-24 14:26 | PHA.MEDREC ---
Pharmacy Consult ? Medication Reconciliation Pharmacy has reviewed the medication reconciliation completed by nursing. Spoke with pt to confirm she is no longer taking Veozan and Losartan.
[2025-05-25 04:00] VITALS: BP 132/62; PULSE 66; RESP 18; TEMP 36.5; O2SAT 96
--- NOTE | 2025-05-25 07:24 | PM.DS ---
DS: Providers Provider Date of Service: 05/25/25 Date of admission: 05/24/25 09:31 Date of discharge: 05/25/25 Primary care physician: Mer Chandler MD DS: Summary Time Attestation Discharge Coordination Time (in mins): 12 Quality: Safe Use of Opioids Does Pt have an Active Cancer Diagnosis on the Problem List?: No Quality: Stroke Does the patient have a stroke diagnosis?: No Physical Exam Vital Signs: Vital Signs: Last Vital Signs Temp 97.7 F 05/25/25 04:00 Pulse 66 05/25/25 04:00 Resp 18 05/25/25 04:00 BP 132/62 05/25/25 04:00 Pulse Ox 96 05/25/25 04:00 O2 Del Method Room Air 05/25/25 04:00 O2 Flow Rate 2 05/24/25 16:00 BMI result Body Mass Index 24.3 Discharge Plan Discharge Anticipated Discharge Date/Time: 05/25/25 07:24 Patient Disposition: Home, Self-Care Discharge Diagnosis: S/P l4-5 OLIF Referrals: Mer Chandler MD [Primary Care Provider, Internal Medicine] - 1 Week Discharge Medications: New ibuprofen 600 mg tablet 600 mg PO TID PRN (Reason: pain) Qty: 30 1RF methocarbamol 750 mg tablet 750 mg PO TID PRN (Reason: muscle spasms) Qty: 30 0RF Continued atorvastatin 10 mg tablet 10 mg PO BEDTIME pantoprazole 40 mg tablet,delayed release (DR/EC) 40 mg PO DAILY gabapentin 100 mg capsule 200 mg PO BEDTIME calcium carbonate-vitamin D3 500 mg-10 mcg (400 unit) Tablet 1 tab PO DAILY amlodipine 5 mg tablet 5 mg PO DAILY cholecalciferol (vitamin D3) [Vitamin D3] 25 mcg (1,000 unit) Capsule 25 mcg PO DAILY PreserVision AREDS-2 250-90-40-1 mg Capsule 1 tab PO BID metoprolol succinate 50 mg tablet extended release 24 hr 75 mg PO DAILY Held ibuprofen 200 mg Tablet 400 mg PO Q6H PRN (Reason: Pain) Hold Instructions: Resume on 06/25/25. hold until Ibuprofen Rx is complete naproxen sodium [Aleve] 220 mg Capsule 220 mg PO BID PRN (Reason: Pain) Hold Instructions: Resume on 06/25/25. hold until Ibuprofen Rx is complete Discharge Orders: Discharge Order (Routine); Ordered 05/25/25 Ordered By: Chinedu Oliveira Diet: Advance to usual diet Activity on Discharge: As tolerated Stand Alone Forms: Patient Portal Discharge page Print Language: Italian Activity Restrictions/Additional Instructions: After your spinal surgery we ask you to observe the following restrictions/guidelines: Activity: It is normal to feel some discomfort as you increase your activity, but that will improve with time. We ask you avoid heavy lifting or acitivities that cause pain. As a general rule, 8lbs is a safe limit for lifting right after surgery. Walk as much as you feel comfortable but not to exhaustion. You will feel extra tired the first few days after surgery. Stay well hydrated. It is OK to walk up and down stairs You may return to driving when you are off narcotics (such as vicodin, oxycodone, dilaudid, etc), and you are back to normal functional capacity. If you have any concerns please check with office before driving. Return to work is specific to each patient and each surgery, so please speak with your doctor/PA at first follow up. Please bring paperwork such as FMLA at that time if you need it filled out. Medications: We recommend you take 1,000mg Tylenol every 8 hours for the first few weeks after surgery, if you do not have any liver issues and can tolerate this medication. Do not exceed 4,000mg daily. We will be sending in a prescription for ibuprofen 600 mg 3 times daily to be used as needed for pain. We will also send in a prescription for methocarbamol 750 mg 3 times daily as needed for muscle spasms. If you are on a narcotic, it is a good idea to take a stool softener such as colace or senna to avoid constipation If you take blood thinner such as aspirin, Plavix, Coumadin, Effient, Eliquis etc for conditions such as Afib, DVT, Pulmonary embolus, coronary disease, stents etc please speak with your surgeon about specific details as to when you can resume these medications. You can resume NSAIDs on post op day 1 (eg: Motrin, Naproxen, etc). Follow up: Please call the office, , after surgery to arrange a 3 week follow up for wound check. Wound Care: You may remove your dressing on the first day after surgery. ?You may ?leave open to air. Please do not remove the steri strips underneath. they will fall off on their own in one week. IT IS NORMAL FOR THE WOUND TO OOZE OR BE BLOODY FOR A FEW DAYS AFTER SURGERY. ?IF THIS HAPPENS JUST PLACE NEW DRESSING OVER IT TO AVOID STAINING CLOTHES. You may shower on post op day # 1 We ask that you do not let the water soak the wound. If it does get wet, just towel dry lightly. Please do not scrub your incision or place any type of chemical/ointment on the wound. No tub baths, pools or jacuzzis for one month. If you have any leaking or redness from your wound, or fevers, please call the office. Care Plan Goals: Return to normal activity as tolerated Health Concerns: None Plan of Treatment: Follow-up in clinic in 2-3 weeks Assessment: POD: 1 Procedure: L4-5 OLIF Mei is a pleasant 80-year-old female who underwent L4-[address] Washington yesterday. She reports she is up walking around is otherwise doing well. She still has some mild low back pain with good relief from current pain regimen. She has been up out of bed to the bathroom, and is voiding well. She is tolerating her current diet. Overall, she feels her symptoms are much better than they were preoperatively. Afebrile, vital signs stable. Full strength 5/5 bilateral lower extremities. Back dressings have some staining without signs of hematoma. No active sanguineous drainage. Area is dry. Plan: Pleasant 80-year-old female who underwent L4-[address] Washington yesterday. She is progressing normally as expected. Patient meets criteria to be medically discharged home. He was seen at bedside with Dr. Washington. I will send in a prescription for ibuprofen 600 mg and methocarbamol 750 mg to the pharmacy here at [facility]. The patient does not tolerate narcotic pain control well. Chinedu Washington MD,PhD [facility]
[2025-05-25 07:30] VITALS: BP 131/60; PULSE 76; RESP 16; TEMP 36.6; O2SAT 95
[2025-05-25] MEDS: Calcium + Vitamin D 250 MG TABLET 500 MG PO (07:38)
[2025-05-25] MEDS: Metoprolol Succinate ER 25 MG TAB.ER.24H 75 MG PO (07:40)
--- NOTE | 2025-05-25 08:31 | MHC.CM.PN ---
pt dcd home self care prior to being seen by cm
--- NOTE | 2025-05-25 08:45 | HO.POSTANES ---
Post Anesthesia Evaluation Post Anesthesia Evaluation Date of Service: 05/24/25 Vital Signs: Vital Signs Temp Pulse Resp BP Pulse Ox O2 Del Method 05/25/25 07:30 97.9 F 76 16 131/60 95 Room Air 05/25/25 04:00 97.7 F 66 18 132/62 96 Room Air Anesthesia: General Mental Status: Awake Pain Control: Satisfactory Nausea/Vomiting: Mild (nausea only during immediate post op period, scopalomine patch helped) Hydration: Adequate Anesthesia-Related Issues: No Anes. Related Issues
== END 2025-05-25 09:59 | disposition home or self-care (01) | DRG 451 ==
LOC: HO.SSSA 10:02 → HO.S3 13:30
PROVIDERS: Neurological Surgery; Admitting Provider Physician Assistant; PCP Internal Medicine; Visit Provider Physician Assistant
PROC: 0SG00A0 Fusion of Lumbar Vertebral Joint with Interbody Fusion Device, Anterior Approach, Anterior Column, Open Approach (ICD-10-PCS; principal; 2025-05-24 11:10)
DX: M48.062 Spinal stenosis, lumbar region with neurogenic claudication (principal); M51.360 Other intervertebral disc degeneration, lumbar region with discogenic back pain only; Z79.899 Other long term (current) drug therapy
CPT/HCPCS: 36415; 80048; 85027; 86850; 86900; 86901; 93005; 97162; C1713; C1889; J0131; J0690; J1100; J1171; J1630; J1885; J2405; J2704; J3010; L8699

== ENCOUNTER → 2025-05-24 09:31 | Outpatient (BNV) | payer OTHER, SELFPAY | PROVIDERS: Admitting Provider Physician Assistant; PCP Internal Medicine; Visit Provider Neurological Surgery | DX: M48.062 Spinal stenosis, lumbar region with neurogenic claudication (principal) | CPT/HCPCS: 20930; 22558; 22612; 22840; 22853; 99499 ==

== ENCOUNTER 2025-06-14 13:22 | Outpatient (REF) | payer OTHER, SELFPAY ==
--- NOTE | ~2025-06-14 | XR_ITS ---
EXAMINATION: XR LUMBOSACRAL SPINE CLINICAL INFORMATION: Z98.1 - Arthrodesis status COMPARISON: Correlated to MRI dated August 01, 2024. TECHNIQUE: AP and lateral views. Lateral views during flexion and extension position. FINDINGS: Trans pedicle screws, bilaterally at L3-4. Status post intervertebral disc spacer placement at L3-4 and L4-5 levels. Grade 1 retrolisthesis L2-3 in neutral position which maintains during flexion and extension. Grade 1 anterolisthesis L4-5 which maintains during flexion and/or extension position. Multilevel marginal osteophyte formation and endplate sclerosis and marginal osteophyte formation throughout the lower thoracic and upper lumbar spine. No acute cortical disruption. XR/XR lumbar spine 4V min IMPRESSION: Status post posterior lumbar fusion L3-4 and arthrodesis at L3-4 and intervertebral disc spacer at L4-5 without acute fracture or gross instability. Multilevel thoracolumbar spondylosis with a grade 1 retrolisthesis L2-3 and grade 1 anterolisthesis L4-5. Electronically signed by: Axel Landry MD 06/14/2025 02:27 PM EDT
== END 2025-06-14 13:23 | disposition home or self-care (01) ==
LOC: HO.HOSX 13:22
PROVIDERS: PCP Internal Medicine; Visit Provider Physician Assistant
DX: Z47.89 Encounter for other orthopedic aftercare (principal); Z98.1 Arthrodesis status
CPT/HCPCS: 72110; 99212

== ENCOUNTER 2025-06-14 13:22 | Outpatient (AMB) | payer OTHER, SELFPAY ==
--- NOTE | 2025-06-14 13:25 | A.SPINEOV_ITS ---
Intake Visit Reasons: 1st Post-op visit Intake Note: Mrs. Hirsch is here today for her 1st post-op visit. [employer] Consultant Required: No Allergies clonidine Allergy (Verified 05/18/25 09:52) Hypotension lisinopril Allergy (Verified 05/18/25 09:51) Cough losartan Allergy (Verified 05/18/25 09:53) Nausea oxycodone Allergy (Verified 05/13/25 07:25) Fainting tramadol Allergy (Verified 05/13/25 07:25) Nausea and Vomiting tizanidine (From Zanaflex) Adverse Reaction (Verified 09/08/24 13:17) Hallucinations Assessment & Plan Assessment & Plan (1) S/P lumbar fusion: Code(s): Z98.1 - Arthrodesis status Category: Medical Plan Procedure: L3-4 OLIF Mei is a pleasant 80-year-old female comes in today for her 1st postoperative visit after having a L3-[address] Washington. To recap preoperatively she reported worsening symptoms of neurogenic claudication. She reports that in the initial postoperative. She was feeling much better than she did prior to surgery. She was only taking ibuprofen and muscle relaxers to help mitigate her symptoms. Unfortunately as of yesterday she started experiencing fairly significant low back pain. She reports that she has been ?miserable and unable to do anything meaningful since this pain began. She denies any known in citing incident for the pain. No new neurological deficits. The patient ambulates well and rises from a seated position without difficulty. Her incision sites are closed and well healing, however the posterior incision sites have some mild edema around them. The outer edges of the incision are non-painful to palpation and not warm, non- erythematous. I would like to send Mei's for a set of lumbar spine x-rays today to evaluate for stable placement of her instrumentation giving this severe acute onset of pain. I will have her come back down to the office to review them together with me thereafter. Assuming the instrumentation is in correct position, we will follow up with her again in 6 weeks with another set of x-rays. In the interim I will refill her muscle relaxers so she can take this alongside the ibuprofen. Chinedu Washington MD,PhD [facility] Orders: Orders XR lumbar spine 4V min Today Z98.1 - Arthrodesis status Medications: Refilled methocarbamol 750 mg PO TID PRN 30 tabs 0RF muscle spasms methocarbamol 750 mg PO TID PRN 30 tabs 0RF muscle spasms Coding Level of Care Code Global (08569) Diagnoses S/P lumbar fusion Z98.1
--- OUTSIDE RECORDS SUMMARY | 2025-06-14 14:10 | XMS_ITS | Clinical Summary ---
Author Organization [facility] [address] [place] [address] Address [address] [place] [address] Phone Care Team Providers Care Telephone Quotation Clerk Name Role Phone Mer Chandler MD Primary Care Provider [phone] Allergies Active Allergy Reactions Criticality Noted Date [...] TABLET BY MOUTH DAILY 90 tablet 1 01/11/2025 Active metoprolol succinate (TOPROL-XL) 50 mg 24 hr tablet Take 1.5 tablets (75 mg total) by mouth 1 (one) time each day. 135 tablet 1 02/08/2025 Active cloNIDine (CATAPRES) 0.2 mg tablet Take 1 tablet (0.2 mg total) by mouth 2 (two) times a day. 60 each 1 02/28/2025 Active fezolinetant 45 mg tabletIndicatio ns:Vasomotor symptoms due to menopause Take 1 tablet by mouth 1 (one) time each day. 90 tablet 1 03/29/2025 Active amLODIPine (NORVASC) 5 mg tablet Take 1 tablet (5 mg total) by mouth 1 (one) time each day. 90 each 1 04/25/2025 Active atorvastatin (LIPITOR) 10 mg tablet Take 1 tablet (10 mg total) by mouth 1 (one) time each day. 90 tablet 1 05/02/2025 Active Active Problems Problem Noted Date Diagnosed Date [...] new medication and thus does not have joint terminal attack controller safety data. However, the literature I have [...] weeks with lumbar spine x-rays with Dr. Pennings. All postop questions answered. She will call [...] Care Team Description 04/20/2025 Telephone Adult Medicine [address] [phone] Mer Chandler MD 04/14/2025 1:00 PM EDT Office Visit Adult Medicine [address] [phone] Dinesh Snyder PA Uncontrolled hypertension (Primary Dx) 04/07/2025 Telephone Obstetrics and Gynecology - [address] [phone] Vanna Matos MD PRIOR AUTHORIZATION 03/29/2025 9:50 AM EDT Lab Draw Station - [address] Vasomotor symptoms due to menopause 03/29/2025 9:15 AM EDT Office Visit Obstetrics and Gynecology - [address] [phone] Vanna Matos MD Vasomotor symptoms due to menopause (Primary Dx) from Last 3 Months Immunizations Name Administration Dates Next Due Influenza Quadravalent, MDCK , 0.5ml, with preservative (Flucelvax) 6mo and older 10/17/2017 Influenza trivalent, 0.5mL ( Fluad) 65yo and older 07/21/2024,09/10/2023,07/23/2022,08/27,07/10/2018,07/29/2016 Influenza trivalent, 0.5mL, preservative free (Fluarix; FluLaval; Fluzone) ages 6mo and older (Afluria) 3 years and older 07/17/2015,08/31/2013,08/19/2011 Influenza, Unspecified 09/05/2020,07/04/2020 Pfizer SARS-CoV-2 COVID-19, mRNA, LNP-S, preservative free 10/15/2021,02/03/2021,01/12/2021 [...] HISTORICAL CHOLECYSTECTOMY BREAST REDUCTION age 47 PROCEDURE: WY BREAST REDUCTION ROTATOR CUFF REPAIR 2006 PROCEDURE: HISTORICAL ROTATOR CUFF REPAIR; COMMENT: R COLONOSCOPY 2002 PROCEDURE: WY COLONOSCOPY STOMA DX INCLUDING COLLJ SPEC SPX; COMMENT: due 2012 OTHER SURGICAL HISTORY PROCEDURE: HISTORICAL SUPRACERVICAL HYSTERECTOMY WITH BSO OTHER SURGICAL HISTORY 04/2003 PROCEDURE: OUTSIDE BONE DENSITY HAND SURGERY PROCEDURE: HISTORICAL HAND SURGERY; COMMENT: tendon release trigger fingers (4th on R and L) CHOLECYSTECTOMY PROCEDURE: WY CHOLECYSTECTOMY NECK SURGERY 02/21/2022 N/A PROCEDURE: HISTORICAL NECK SURGERY; COMMENT: C6 corpectomy, C5-7 anterior fusion; Dr. Washington OTHER SURGICAL HISTORY 08/28/2022 PROCEDURE: WY ARTHRODESIS POSTERIOR INTERBODY 1 NTRSPC LUMBAR; COMMENT: [...] care for your loved ones. For example, child and family counselor or elderly care for an older [...] EDT Office Visit Obstetrics and Gynecology - [address] [phone] Judy Lara CNM [address] [place] [address] 07/01/2025 11:30 AM EDT Office Visit Adult Medicine [address] [phone] Mer Chandler MD [address] [place] [address] 09/12/2025 8:30 AM EST Office Visit [address] [phone] Dinesh Snyder PA [address] [place] [address] Health Maintenance Due Date Last Done Comments [...] Procedure Name Priority Date/Time Associated Diagnosis Comments EXTERNAL XRAY REPORT 05/24/2025 ASPARTATE AMINOTRANSFERASE Routine 03/29/2025 9:55 AM EDT [...] Recently Relevant to Health Maintenance Results * External Xray Report (05/24/2025) Anatomical Region Laterality Modality Radiographic Siomara ging Provider [facility] XR PROCEDURES Final Result * Alanine aminotransferase (03/29/2025 9:55 AM EDT) [facility] ALT (SGPT) 29 10 - 60 unit/L LAB CHEMISTRY METHOD 03/29/2025 2:39 PM EDT [facility] Blood Venous blood specimen / Unknown Venipuncture / Unknown 03/29/2025 9:55 AM EDT 03/29/2025 9:55 AM EDT Vanna Matos MD LAB BLOOD ORDERABLES Final Result Performing Organization Address City/[facility]/ZIP Co de Phone Number [facility] [address] [place] [address], * Aspartate aminotransferase (03/29/2025 9:55 AM EDT) [facility] AST (SGOT) 25 10 - 42 unit/L LAB CHEMISTRY METHOD 03/29/2025 2:45 PM EDT [facility] Blood Venous blood specimen / Unknown Venipuncture / Unknown 03/29/2025 9:55 AM EDT 03/29/2025 9:55 AM EDT us Vanna Matos MD LAB BLOOD ORDERABLES Final Result Performing Organization Address City/[facility]/ZIP Co de Phone Number [facility] [address] [place] [address], [place] [phone] * (ABNORMAL) Lipid panel with reflex to direct LDL (12/07/2024 9:51 AM EST) Cholesterol 156 0 - 200 mg/dL LAB CHEMISTRY METHOD 12/07/2024 12:07 PM [facility] Triglycerides 154(H) 0 - 150 mg/dL LAB CHEMISTRY METHOD 12/07/2024 12:07 PM [facility] HDL 52 >=40 mg/dL LAB CHEMISTRY METHOD 12/07/2024 12:07 PM [facility] LDL Calculated 73 0 - 100 mg/dL LAB CHEMISTRY METHOD 12/07/2024 12:07 PM [facility] VLDL Cholesterol Barrera 30.8 mg/dL LAB CHEMISTRY METHOD 12/07/2024 12:07 PM [facility] Non HDL Chol. (LDL+VLDL) 104 <145 mg/dL LAB CHEMISTRY METHOD 12/07/2024 12:07 PM [facility] Chol/HDL Ratio 3.0 0.0 - 4.4 LAB CHEMISTRY METHOD 12/07/2024 12:07 PM [facility] Blood Venous blood specimen / Unknown Venipuncture / Unknown 12/07/2024 9:51 AM EST 12/07/2024 9:51 AM EST us Mer Chandler MD LAB BLOOD ORDERABLES Final Resul t [facility] [address] [place] [address], * Comprehensive metabolic panel (12/07/2024 9:51 AM EST) Pathologist [facility] Sodium 135 133 - 145 mmol/L LAB CHEMISTRY METHOD 12/07/2024 12:07 PM [facility] Potassium 4.6 3.5 - 5.5 mmol/L LAB CHEMISTRY METHOD 12/07/2024 12:07 PM [facility] Chloride 100 96 - 110 mmol/L LAB CHEMISTRY METHOD 12/07/2024 12:07 PM [facility] CO2 29 21 - 32 mmol/L LAB CHEMISTRY METHOD 12/07/2024 12:07 PM [facility] Anion Gap 6 3 - 11 LAB CHEMISTRY METHOD 12/07/2024 12:07 PM [facility] Glucose 88 70 - 100 mg/dL LAB CHEMISTRY METHOD 12/07/2024 12:07 PM [facility] BUN 18 5 - 25 mg/dL LAB CHEMISTRY METHOD 12/07/2024 12:07 PM [facility] Creatinine 0.85 0.50 - 1.10 mg/dL LAB CHEMISTRY METHOD 12/07/2024 12:07 PM [facility] eGFR 71 >=60 mL/min/1. 73m2 LAB CHEMISTRY METHOD 12/07/2024 12:07 PM [facility] Comment:Calculation based on the Chronic Kidney Disease Epidemiology Collaboration (CKD-EPI) equation refit without adjustment for race. BUN/Creatinine Ratio 21.2 LAB CHEMISTRY METHOD 12/07/2024 12:07 PM [facility] Calcium 10.0 8.5 - 10.5 mg/dL LAB CHEMISTRY METHOD 12/07/2024 12:07 PM [facility] AST (SGOT) 17 10 - 42 unit/L LAB CHEMISTRY METHOD 12/07/2024 12:07 PM [facility] ALT (SGPT) 19 10 - 60 unit/L LAB CHEMISTRY METHOD 12/07/2024 12:07 PM [facility] Alkaline Phosphatase 52 42 - 121 unit/L LAB CHEMISTRY METHOD 12/07/2024 12:07 PM [facility] Total Protein 7.1 6.0 - 8.0 g/dL LAB CHEMISTRY METHOD 12/07/2024 12:07 PM [facility] Albumin 4.2 3.2 - 5.0 g/dL LAB CHEMISTRY METHOD 12/07/2024 12:07 PM [facility] Total Bilirubin 0.6 0.0 - 1.4 mg/dL LAB CHEMISTRY METHOD 12/07/2024 12:07 PM EST [facility] Blood Venous blood specimen / Unknown Venipuncture / Unknown 12/07/2024 9:51 AM EST 12/07/2024 9:51 AM EST Mer Chandler MD LAB BLOOD ORDERABLES Final Resul t [facility] [address] [place] [address], [place] [phone] * Falls Risk Assessment (01/19/2024) Falls Risk Assessment abstracted Historical Provider HEALTH MAINTENANCE Final Result * Depression Screening (01/19/2024) Depression Screening abstracted [facility] Provider HEALTH MAINTENANCE Final Result * Hepatitis C Screening (03/15/2013) Hepatitis C Screening abstracted Historical Provider HEALTH MAINTENANCE Final Result from Last 3 Months or Most Recently Relevant to Health Maintenance Insurance [employer] Care Teams Telephone Quotation Clerk Relationship Specialty Start Date End Date Mer Chandler MD [address] [place] [address] [phone] PCP - General Internal Medicine 06/10/22
== END 2025-06-14 14:25 | disposition home or self-care (01) ==
LOC: HO.HNS 13:22
PROVIDERS: PCP Internal Medicine; Visit Provider Physician Assistant
DX: Z98.1 Arthrodesis status (principal)
CPT/HCPCS: 99024

== ENCOUNTER → 2025-06-14 13:51 | Outpatient (BNV) | payer OTHER, SELFPAY | PROVIDERS: PCP Internal Medicine; Visit Provider Radiology Diagnostic Radiology | DX: M48.061 Spinal stenosis, lumbar region without neurogenic claudication (principal); Z98.1 Arthrodesis status | CPT/HCPCS: 72110 ==

== ENCOUNTER 2025-07-28 11:06 | Outpatient (AMB) | payer OTHER, SELFPAY ==
--- NOTE | 2025-07-28 11:22 | HO.SPINEOV ---
Intake Visit Reasons: 2nd post op with Xrays Intake Note: Ms. Hirsch is here today for her 2nd post op with xrays. Administrative Services Officer Required: No Allergies clonidine Allergy (Verified 05/18/25 09:52) Hypotension lisinopril Allergy (Verified 05/18/25 09:51) Cough losartan Allergy (Verified 05/18/25 09:53) Nausea oxycodone Allergy (Verified 05/13/25 07:25) Fainting tramadol Allergy (Verified 05/13/25 07:25) Nausea and Vomiting tizanidine (From Zanaflex) Adverse Reaction (Verified 09/08/24 13:17) Hallucinations Assessment & Plan Assessment & Plan (1) S/P lumbar fusion: Code(s): Z98.1 - Arthrodesis status Category: Surgical Plan Procedure: L3-4 OLIF Mei is a pleasant 80-year-old female comes in today for her 2nd postoperative visit after having a L3-[address] Washington. To recap during her last office visit she reported a fairly significant flare up of pain, which we evaluated via X-ray imaging. They showed stable placement of her construct wih no new changes seen. She was continued of Methocarbamol as well. Thankfully, since her last visit she reports she has been doing very well. She reports only the occasional flare-up of cramping, or the occasional twinges of pain. We reviewed her new x-ray imaging during this visit which shows stable placement of her surgical construct with no changes from prior imaging. No new neurological deficits. The patient ambulates well and rises from a seated position without difficulty. Her incision sites are closed and well healed. I would like to order a CT scan to be completed 10 months out from surgery for the patient, and we will also have her scheduled to come back and see us 1 year out from surgery. Chinedu Washington MD,PhD [facility] Orders: Orders XR lumbar spine 4V min Today Z98.1 - Arthrodesis status CT lumbar spine wo IV con 03/17/26 Z98.1 - Arthrodesis status Coding Level of Care Code Global (10981) Diagnoses S/P lumbar fusion Z98.1
== END 2025-07-28 13:34 | disposition home or self-care (01) ==
LOC: HO.HNS 11:06
PROVIDERS: PCP Internal Medicine; Visit Provider Physician Assistant
DX: Z98.1 Arthrodesis status (principal)
CPT/HCPCS: 99024

== ENCOUNTER → 2025-07-28 11:14 | Outpatient (BNV) | payer OTHER, SELFPAY | PROVIDERS: Visit Provider Radiology Vascular & Interventional Radiology | DX: Z98.1 Arthrodesis status (principal) | CPT/HCPCS: 72110 ==

== ENCOUNTER 2025-07-28 12:05 | Outpatient (REF) | payer OTHER, SELFPAY ==
--- NOTE | ~2025-07-28 | XR_ITS ---
CLINICAL HISTORY: Z98.1 - Arthrodesis status --- Additional Notes or Special Instructions: {AP LAT FLEX EX} 4 views lumbar spine Comparison: DX/SR - XR LUMBAR SPINE 4 OR MORE VIEWS - 06/14/25 13:51 EDT Findings: Similar-appearing lumbar fusion hardware. No significant change in alignment with flexion or extension. No acute fracture. Advanced degenerative changes are present Impression: Intact hardware without evidence of acute process. This document has been electronically signed by: Steven Del Cid MD on 07/29/2025 11:49:28
--- OUTSIDE RECORDS SUMMARY | 2025-07-29 13:52 | XMS_ITS | Clinical Summary ---
Author Organization [facility] [address] [place] [address] [address] [place] [address] Phone Care Team Providers Care Coding Coordinator Name Role Phone Mer Chandler MD Primary Care Provider [phone] Allergies Active Allergy Reactions Criticality Noted Date Comments Clonidine 04/14/2025 Bp dropped very low Lisinopril Cough 03/08/2025 Losartan Nausea Only 04/14/2025 Feeling unwell Oxycodone Other 03/29/2022 syncope Tizanidine Other 09/19/2020 hallucinations Tramadol Nausea And Vomiting 04/30/2023 Medications calcium carbonate/vipul min D3 (CALCIUM 500 + D ORAL) Take 1 capsule by mouth 1 (one) time each day. Active vit A/vit C/vit E/zinc/copper (PRESERVISION AREDS ORAL) Take by mouth. Active metoprolol succinate (TOPROL-XL) 50 mg 24 hr tablet Take 1.5 tablets (75 mg total) by mouth 1 (one) time each day. 135 tablet 1 02/09/20 25 Active amLODIPine (NORVASC) 5 mg tablet Take 1 tablet (5 mg total) by mouth 1 (one) time each day. 90 each 1 04/25/20 25 Active atorvastatin (LIPITOR) 10 mg tablet Take 1 tablet (10 mg total) by mouth 1 (one) time each day. 90 tablet 1 05/02/20 25 Active gabapentin (NEURONTIN) 300 mg capsule Take 1 capsule (300 mg total) by mouth 3 (three) times a day. 90 each 06/27/20 25 026 Active pantoprazole (PROTONIX) 40 mg EC tablet TAKE 1 TABLET BY MOUTH DAILY 90 tablet 1 07/12/20 25 Active gabapentin (NEURONTIN) 100 mg capsule Take 1 capsule (100 mg total) by mouth 1 (one) time each day in the morning. and 2 tablets PM 025 Discontinued(Do se adjustment) pantoprazole (PROTONIX) 40 mg EC tablet TAKE 1 TABLET BY MOUTH DAILY 90 tablet 1 01/12/20 25 025 Discontinued cloNIDine (CATAPRES) 0.2 mg tablet Take 1 tablet (0.2 mg total) by mouth 2 (two) times a day. 60 each 1 02/29/20 025 Discontinued(Si de effects) fezolinetant 45 mg tabletIndicati ons:Vasomotor symptoms due to menopause Take 1 tablet by mouth 1 (one) time each day. 90 tablet 1 03/29/20 025 Discontinued(Al ternate therapy) Active Problems Problem Noted Date Diagnosed Date S/P lumbar fusion 07/01/2025 Carpal tunnel syndrome on left 02/01/2025 Other [...] new medication and thus does not have watermaster safety data. However, the literature I have [...] with any concerns or questions. Hypercholesteremia 10/21/2017 White coat syndrome with diagnosis of hypertensi on 10/12/2010 Assessment & Plan (11/30/2024 9:16 AM [...] Encounters Date Type Department Care Team Description 07/01/2025 11:30 AM EDT Office Visit Adult Medicine [place] - [address] [phone] Mer Chandler MD Hospital discharge follow-up (Primary Dx); White coat syndrome with diagnosis of hypertension; Essential hypertension, benign; Hypercholesteremia; Degeneration of intervertebral disc of lumbar region without discogenic back pain or lower extremity pain; S/P lumbar fusion 06/27/2025 9:00 AM EDT Office Visit Obstetrics and Gynecology - [address] [phone] Judy Lara, MINNIE Vasomotor symptoms due to menopause (Primary Dx) from Last 3 Months Immunizations Name Administration Dates Next Due Influenza Quadravalent, MDCK , 0.5ml, with preservative (Flucelvax) 6mo and older 10/17/2017 Influenza trivalent, 0.5mL ( Fluad) 65yo and older 07/21/2024,09/10/2023,07/23/2022,08/27,07/10/2018,07/29/2016 Influenza trivalent, 0.5mL, preservative free (Fluarix; FluLaval; Fluzone) ages 6mo and older (Afluria) 3 years and older 07/17/2015,08/31/2013,08/19/2011 Influenza, Unspecified 09/05/2020,07/04/2020 [employer] SARS-CoV-2 COVID-19, mRNA, LNP-S, preservative free 10/15/2021,02/03/2021,01/12/2021 [...] HISTORICAL CHOLECYSTECTOMY BREAST REDUCTION age 47 PROCEDURE: ND BREAST REDUCTION ROTATOR CUFF REPAIR 2006 PROCEDURE: HISTORICAL ROTATOR CUFF REPAIR; COMMENT: R COLONOSCOPY 2002 PROCEDURE: ND COLONOSCOPY STOMA DX INCLUDING COLLJ SPEC SPX; COMMENT: due 2012 OTHER SURGICAL HISTORY PROCEDURE: HISTORICAL SUPRACERVICAL HYSTERECTOMY WITH BSO OTHER SURGICAL HISTORY 04/2003 PROCEDURE: OUTSIDE BONE DENSITY HAND SURGERY PROCEDURE: HISTORICAL HAND SURGERY; COMMENT: tendon release trigger fingers (4th on R and L) CHOLECYSTECTOMY PROCEDURE: ND CHOLECYSTECTOMY NECK SURGERY 02/21/2022 N/A PROCEDURE: HISTORICAL NECK SURGERY; COMMENT: C6 corpectomy, C5-7 anterior fusion; Dr. Washington OTHER SURGICAL HISTORY 08/28/2022 PROCEDURE: ND ARTHRODESIS POSTERIOR INTERBODY 1 NTRSPC LUMBAR; COMMENT: [...] for your loved ones. For example, child caregiver private home or elderly care for an older adult? [...] Births 2 2 2 0 0 0 2 2 Date Outcome GA Total Labor Labor/2nd/3rd Weight Sex Type Anes PTL Luiza A1 A5 Name Clin Term Vag-S pont Living Term Vag-S pont Living Last Filed Vital Signs Vital Sign Reading Time Taken Comments Blood Pressure 162/68 07/01/2025 11:26 AM EDT provider will recheck Pulse 82 07/01/2025 11:26 AM EDT Temperature 36.6 C (97.9 F) 07/01/2025 11:26 AM EDT Respiratory Rate 14 07/01/2025 11:2 6 AM EDT Oxygen Saturation 99% 07/01/2025 11: 26 AM EDT Inhaled Oxygen Concentration - - Weight 63.5 kg (140 lb) 07/01/2025 11:2 6 AM EDT Height 162.6 cm (5' 4 ) 07/01/2025 11:2 6 AM EDT Body Mass Index 24.03 07/01/2025 11:26 AM EDT Plan of Treatment Upcoming Encounters Date Type Department Care Team (Late st Contact Info) Description 08/29/2025 8:30 AM EDT Office Visit Obstetrics and Gynecology - [address] [phone] Judy Lara CNM [address] [place] [address] 09/12/2025 8:30 AM EST Office Visit Adult Medicine [place] - [address] [phone] Dinesh Snyder PA [address] [place], [place] [id number] Health Maintenance Due Date Last Done Comments RSV Immunization Adult Patients (1 - 1-dose 75+ series) 2022 COVID-19 Vaccine ( season) 2025 10/15/2021, 02/03/2021, 01/12/2021 Influenza Vaccine (#1) 2025 , 09/10/2023, 07/23/2022, Additional history exists Social Influencers of Health Screening 12/06/2025 12/06/2024 Hypertension/CHF/CAD Annual BMP Blood Test 12/07/2025 12/07/2024, 07/21/2024, 07/21/2024 Falls Risk Assessment 07/01/2026 07/01/2025, 024 Osteoporosis Screening (Bone Density Screening) 04/06/2029 04/06/2024 Cholesterol Screening (Lipid Panel) 12/07/2029 12/07/2024, 07/21/2024, 07/21/2024 DTaP,Tdap,and Td Vaccines (3 - Td or Tdap) 01/18/2034 01/19/2024, 05/08/2012 Hepatitis C Screening Completed 03/15/2013 Pneumococcal Vaccine: 50+ Years Completed 03/06/2016, 05/08/2012 Zoster Vaccines Completed 09/05/2020, 06/04, 06/04/2012 Depression Screening Completed 06/20/2025, 01/19/20 24 HIB Vaccines Aged Out No [...] Date/Time Associated Diagnosis Comments EXTERNAL XRAY REPORT 06/14/2025 EXTERNAL XRAY REPORT 06/14/2025 EXTERNAL XRAY REPORT 05/24/2025 COMPREHENSIVE METABOLIC PANEL Routine 12/07/2024 9:51 AM EST Essential hypertension, benign LIPID PANEL WITH REFLEX TO DIRECT LDL Routine 12/07/2024 9:51 AM EST Hypercholesteremia DEPRESSION SCREENING Routine 01/19/2024 FALLS RISK ASSESSMENT Routine 01/19/2024 HEPATITIS C SCREENING Routine 03/15/2013 from Last 3 Months or Most Recently Relevant to Health Maintenance Results * External Xray Report (06/14/2025) Only the most recent of3 resultswithin the time period is included. Anatomical Region Laterality Modality Radiographic Siomara ging us Provider [facility] XR PROCEDURES Final Result * (ABNORMAL) Lipid panel with reflex to direct LDL (12/07/2024 9:51 AM EST) Cholesterol 156 0 - 200 mg/dL LAB CHEMISTRY METHOD 12/07/2024 12:07 PM [facility] Triglycerides 154(H) 0 - 150 mg/dL LAB CHEMISTRY METHOD 12/07/2024 12:07 PM [facility] HDL 52 >=40 mg/dL LAB CHEMISTRY METHOD 12/07/2024 12:07 PM [facility] LDL Calculated 73 0 - 100 mg/dL LAB CHEMISTRY METHOD 12/07/2024 12:07 PM [facility] VLDL Cholesterol Barrera 30.8 mg/dL LAB CHEMISTRY METHOD 12/07/2024 12:07 PM [facility] Non HDL Chol. (LDL+VLDL) 104 <145 mg/dL LAB CHEMISTRY METHOD 12/07/2024 12:07 PM [facility] Chol/HDL Ratio 3.0 0.0 - 4.4 LAB CHEMISTRY METHOD 12/07/2024 12:07 PM [facility] Blood Venous blood specimen / Unknown Venipuncture / Unknown 12/07/2024 9:51 AM EST 12/07/2024 9:51 AM EST Mer Chandler MD LAB BLOOD ORDERABLES Final Resul t [facility] [address] [place] [address], * Comprehensive metabolic panel (12/07/2024 9:51 AM EST) Sodium 135 133 - 145 mmol/L LAB CHEMISTRY METHOD 12/07/2024 12:07 PM [facility] Potassium 4.6 3.5 - 5.5 mmol/L LAB CHEMISTRY METHOD 12/07/2024 12:07 PM [facility] Chloride 100 96 - 110 mmol/L LAB CHEMISTRY METHOD 12/07/2024 12:07 PM [facility] CO2 29 21 - 32 mmol/L LAB CHEMISTRY METHOD 12/07/2024 12:07 PM [facility] Anion Gap 6 3 - 11 LAB CHEMISTRY METHOD 12/07/2024 12:07 PM [facility] Glucose 88 70 - 100 mg/dL LAB CHEMISTRY METHOD 12/07/2024 12:07 PM [facility] BUN 18 5 - 25 mg/dL LAB CHEMISTRY METHOD 12/07/2024 12:07 PM [facility] Creatinine 0.85 0.50 - 1.10 mg/dL LAB CHEMISTRY METHOD 12/07/2024 12:07 PM [facility] eGFR 71 >=60 mL/min/1. 73m2 LAB CHEMISTRY METHOD 12/07/2024 12:07 PM [facility] Comment:Calculation based on the Chronic Kidney Disease Epidemiology Collaboration (CKD-EPI) equation refit without adjustment for race. BUN/Creatinine Ratio 21.2 LAB CHEMISTRY METHOD 12/07/2024 12:07 PM [facility] Calcium 10.0 8.5 - 10.5 mg/dL LAB CHEMISTRY METHOD 12/07/2024 12:07 PM [facility] AST (SGOT) 17 10 - 42 unit/L LAB CHEMISTRY METHOD 12/07/2024 12:07 PM [facility] ALT (SGPT) 19 10 - 60 unit/L LAB CHEMISTRY METHOD 12/07/2024 12:07 PM [facility] Alkaline Phosphatase 52 42 - 121 unit/L LAB CHEMISTRY METHOD 12/07/2024 12:07 PM [facility] Total Protein 7.1 6.0 - 8.0 g/dL LAB CHEMISTRY METHOD 12/07/2024 12:07 PM [facility] Albumin 4.2 3.2 - 5.0 g/dL LAB CHEMISTRY METHOD 12/07/2024 12:07 PM EST [facility] Total Bilirubin 0.6 0.0 - 1.4 mg/dL LAB CHEMISTRY METHOD 12/07/2024 12:07 PM EST [facility] Blood Venous blood specimen / Unknown Venipuncture / Unknown 12/07/2024 9:51 AM EST 12/07/2024 9:51 AM EST Mer Chandler MD LAB BLOOD ORDERABLES Final Resul t [facility] [address] [place] [address], * Falls Risk Assessment (01/19/2024) Falls Risk Assessment abstracted Historical Provider HEALTH MAINTENANCE Final Result * Depression Screening (01/19/2024) Depression Screening abstracted Historical Provider HEALTH MAINTENANCE Final Result * Hepatitis C Screening (03/15/2013) Hepatitis C Screening abstracted Historical Provider HEALTH MAINTENANCE Final Result from Last 3 Months or Most Recently Relevant to Health Maintenance Insurance [employer] Care Teams Coding Coordinator Relationship Specialty Start Date End Date Mer Chandler MD [address] [place] [phone] PCP - General Internal Medicine 06/10/22
== END 2025-07-28 12:06 | disposition home or self-care (01) ==
LOC: HO.HOSX 12:05
PROVIDERS: Visit Provider Physician Assistant
DX: Z48.811 Encounter for surgical aftercare following surgery on the nervous system (principal); Z98.1 Arthrodesis status
CPT/HCPCS: 72110; 99212